=== PATIENT | female | born 1960 | race Caucasian/White ===

== ENCOUNTER 2023-03-10 11:37 | Outpatient (OUT) | payer OTHER, SELFPAY ==
--- NOTE | 2023-03-10 11:39 | XR_ITS ---
[facility] [place] [facility] [id number] Patient Name: ALESSANDRA DUARTE MRN: [id number] date: 1960 Sex: F Assigned Patient Location: [facility] Current Patient Location: [facility] Accession/Order Number: [id number] Exam Date: 03/10/2023 11:48 Report Date: 03/10/2023 12:17 At the request of: SALLY BYNUM Procedure: XR DEXA axial skeleton EXAMINATION: XR DEXA axial skeleton HISTORY: General Well Adult Z00.00 COMPARISON: No relevant comparison available. TECHNIQUE: Dual-energy X-ray absorptiometry (DXA) was performed. FINDINGS: SPINE ANALYSIS: Average bone mineral density is 1.460 g/cm2. T-score (standard deviation relative to young adult mean): 2.2 . FOREARM ANALYSIS: Lowest bone mineral density is within the radius, 0.788 g/cm2. T-score (standard deviation relative to young adult mean): 1.0 . XR/XR DEXA axial skeleton IMPRESSION: World Kash Organization Classification: Normal - Low Fracture Risk Electronically authenticated by: GEORGE STORY Date: 03/10/2023 12:17
== END 2023-03-10 11:38 | disposition home or self-care (01) ==
PROVIDERS: PCP Nurse Practitioner Family; Visit Provider Nurse Practitioner Family
DX: Z00.00 Encounter for general adult medical examination without abnormal findings (principal)
CPT/HCPCS: 77080

== ENCOUNTER 2023-10-27 09:06 | Outpatient (OUT) | payer MEDICARE, BC, SELFPAY ==
--- NOTE | 2023-10-27 09:19 | MM_ITS ---
Patient Name: ALESSANDRA DUARTE MR#: [id number] : 1960 Exam Date: 10/27/2023 Ordering Doctor: SALLY BYNUM CNP RADIOLOGY REPORT PROCEDURE: MM TOMOSYNTHESIS SCREENING BI COMPARISON: MAMMO JUSTIN SCREEN, 08/14/2017. MM TOMOSYNTHESIS SCREENING BI, 11/04/2018. INDICATIONS: screening Calculator Name NCI Breast Cancer Risk Assessment Tool 5 Year Breast Cancer Risk 1.80% Lifetime Breast Cancer Risk 6.90% Personal Breast Cancer No Personal Ovarian Cancer No Treatments None Family Cancers Father with colon cancer at age ~75. LOCATION: [facility] BREAST COMPOSITION: There are scattered areas of fibroglandular density. FINDINGS: DIAGNOSTIC CATEGORY 1--NEGATIVE. NO CHANGE FROM COMPARISON ASSESSMENT. Scattered benign-appearing calcifications are present. Scattered benign-appearing lymph nodes are present. RIGHT BREAST: No significant suspicious finding. LEFT BREAST: No significant suspicious finding. Stable moderate focal asymmetry upper outer quadrant likely representing fibroglandular tissue RECOMMENDATIONS: ROUTINE MAMMOGRAM AND CLINICAL EVALUATION IN 12 MONTHS. PLEASE NOTE: A NORMAL MAMMOGRAM DOES NOT EXCLUDE THE POSSIBILITY OF BREAST CANCER. A CLINICALLY SUSPICIOUS PALPABLE LUMP SHOULD BE BIOPSIED. Dictated by: Misael Morales MD on 11/02/2023 at 14:36 Approved by: Misael Morales MD on 11/02/2023 at 14:38
[2023-10-27 09:52] LABS: Estimated Average Glucose 100 mg/dL; Glycohemoglobin A1C 5.1 % (4.5-6.2)
[2023-10-27 09:59] LABS: Alanine Aminotransferase 46 U/L (14-59); Albumin Globulin Ratio 1.2; Albumin Level 3.7 g/dL (3.4-5.0); Alkaline Phosphatase 51 U/L (46-116); Anion Gap 12.6; Aspartate Amino Transferase 28 U/L (15-37); BUN Creatinine Ratio 21.6; Bilirubin Total 0.8 mg/dL (0.2-1.0); Calcium 9.2 mg/dL (8.5-10.1); Carbon Dioxide 28.8 mmol/L (21.0-32.0); Chloride 107 mmol/L (98-107); Chol HDL Ratio 1.7; Cholesterol 155 mg/dL (<=200); Estimated GFR (African America >60 (>=60); Estimated GFR (Non-African Ame >60 (>=60); Free T3 3.67 pg/mL (2.18-3.98); Globulin 3.2 g/dL; Glucose 91 mg/dL (74-106); HDL Cholesterol 89 mg/dL (40-60); Potassium 4.4 mmol/L (3.5-5.1); Sodium 144 mmol/L (136-145); Total Protein 6.9 g/dL (6.4-8.2); Triglycerides 41 mg/dL (<=150); VLDL CHOLESTEROL 8.2 mg/dL
[2023-10-27 10:38] LABS: Basophils Percent Auto 0.6 % (0.2-2.0); Eosinophils Absolute Auto 0.2 10^3/uL (0.0-0.7); Eosinophils Percent Auto 3.6 % (0.9-7.0); Hematocrit 40.4 % (36.0-48.0); Hemoglobin 12.8 g/dL (12.0-16.0); Immature Granulocytes Abs Auto 0.02 10^3/uL (0.00-0.03); Immature Granulocytes Pct Auto 0.4 % (0.0-0.5); Lymphocytes Absolute Auto 1.6 10^3/uL (1.2-3.8); Lymphocytes Percent Auto 29.7 % (20.5-60.0); Mean Corpuscular HGB Conc 31.7 g/dL (29.9-35.2); Mean Corpuscular Hemoglobin 31.6 pg (26.7-34.0); Mean Corpuscular Volume 99.8 fL (81.0-99.0); Monocytes Absolute Auto 0.5 10^3/uL (0.3-0.8); Monocytes Percent Auto 9.4 % (1.7-12.0); Neutrophils Absolute Auto 2.9 10^3/uL (1.4-6.5); Neutrophils Percent Auto 56.3 % (43.0-75.0); Platelet Count 239 10^3/uL (150-450); Red Blood Count 4.05 10^6/uL (4.20-5.40); White Blood Count 5.2 10^3/uL (4.0-11.0)
[2023-10-28 10:10] LABS: Insulin 9.4 uIU/mL (2.6-24.9)
== END 2023-10-27 09:07 | disposition home or self-care (01) ==
LOC: MAMMO 09:06
PROVIDERS: PCP Nurse Practitioner Family; Visit Provider Nurse Practitioner Family
DX: Z12.31 Encounter for screening mammogram for malignant neoplasm of breast (principal); M19.90 Unspecified osteoarthritis, unspecified site; E78.5 Hyperlipidemia, unspecified; R73.09 Other abnormal glucose; R53.83 Other fatigue; D64.9 Anemia, unspecified; E55.9 Vitamin D deficiency, unspecified; Z80.0 Family history of malignant neoplasm of digestive organs
CPT/HCPCS: 36415; 77063; 77067; 80053; 80061; 82306; 83036; 83525; 83540; 84436; 84443; 84481; 85025

== ENCOUNTER 2024-05-12 09:34 | Outpatient (OUT) | payer MEDICARE, BC, SELFPAY ==
--- NOTE | 2024-05-12 09:45 | NM_ITS ---
[facility] [place] [address] Patient Name: ALESSANDRA DUARTE MRN: [id number] date: 1960 Sex: F [place]igned Patient Location: [place] Current Patient Location: [place] Accession/Order Number: [id number] Exam Date: 05/12/2024 09:45 Report Date: 05/12/2024 13:54 At the request of: SHARLA ALDANA Procedure: NE bone 3 phase EXAMINATION: NE bone 3 phase HISTORY: LEFT HIP PAIN, RULE OUT PROSTHETIC LOOSENING COMPARISON: No relevant comparison available. TECHNIQUE: 25.3 mCi Technetium 99m MDP was injected intravenously followed by acquisition of dynamic flow, immediate blood pool, and delayed static images. FINDINGS: IMAGED AREA: Pelvis FLOW PHASE: Normal. BLOOD POOL PHASE: Normal. DELAYED IMAGES: Normal. OTHER: Bilateral hip photopenia suggesting bilateral hip arthroplasty. No plain film correlation NE/NE bone 3 phase IMPRESSION: No abnormal radionuclide activity to suggest left hip prosthetic loosening Electronically authenticated by: HECTOR PASCAL Date: 05/12/2024 13:54
== END 2024-05-12 09:35 | disposition home or self-care (01) ==
LOC: NM 09:36
PROVIDERS: PCP Nurse Practitioner Family; Visit Provider Orthopaedic Surgery
DX: M25.552 Pain in left hip (principal); Z96.642 Presence of left artificial hip joint
CPT/HCPCS: 78315; A9503

== ENCOUNTER 2024-06-06 12:53 | Outpatient (RCR) | payer MEDICARE, BC, SELFPAY | END 2024-07-12 08:21 | disposition home or self-care (01) | LOC: PT 12:53 | PROVIDERS: PCP Nurse Practitioner Family; Visit Provider Orthopaedic Surgery | DX: M25.552 Pain in left hip (principal); M54.50 Low back pain, unspecified | CPT/HCPCS: 97110; 97112; 97163; 97530 ==

== ENCOUNTER 2024-11-24 09:02 | Outpatient (OUT) | payer MEDICARE, BC, SELFPAY ==
--- OUTSIDE RECORDS SUMMARY | 2024-11-24 09:22 | XMS_ITS | CCD ---
Author Organization [facility] Care Team Providers Care Channeler Insole Name Role Phone LISA FITCH Primary Care UnavailJEAN CARLOS Nelson Attending Unavailable Lisa Fitch Primary Care Provider Lisa Fitch Primary Care Provider LISA FITCH Primary Care Unavailable NICOLE DIAMOND Referring Unavailable DERRELL ALARCON Attending Unavailable LISA FITCH Primary Care Unavailable SELF, SELF Referring Unavailable Tima Rodriguez MD Primary Care Provider Amanda Cleary MD Unavailable Libby WYLIE Regine Unavailable NON STAFF Primary Care Provider Unavailsanta Holliday MD, Tung Arauz Attending Provider [phone] Evin [employer] AGENT-C, Amanda Agudelo Primary Care Provider Diane Barrera DO Attending Provider Tung Holliday II Admitting UnavailTung Dubose II Attending Unavailsanta e NON STAFF Primary Care Unavailable Tung Holliday II Admitting Unavailsanta Holliday II, Tung Arauz Attending UnavailAmanda Calixto Primary Care Unavailable Tung Holliday II Admitting UnavailTung Dubose II Attending UnavailAmanda Calixto Primary Care Unavailable Diane Barrera Admitting Unavailable Diane Barrera Attending Unavailable Amanda Cleary Primary Care Unavailable MISAEL PARISI Attending Unavailable ROLF ALAN Attending Unavailable JR. NICOLE, SHARLA Alfred Attending Unavailtasha RIVERA JR., SHARLA Alfred Referring Unavailtasha RIVERA JR., GEORGE C Attending Flor RIVERA JR., GEORGE C Attending Flor fink Allergies Allergy Classification Reported Allergen(s) Allergy Type Date of Onset Reaction(s) Facility Unclassified (1 source) ALLERGIES NOT ON FILE; Translations: [ALLERGIES NOT ON FILE] Propensity to adverse reactions (disorder) [facility] Repository (20 sources) Codeine; Translations: [Unknown] Drug Allergy 04-23-20 15 GI Intolerance, Dizziness [facility] Repository (16 sources) Amoxicillin / Clavulanate Drug Allergy 07-13-19 14 Hives, Rash, Anaphylaxis, Itching [facility] (3 sources) Acetaminophen; Translations: [acetaminophen] Drug Allergy 06-16-20 24 Vomiting [facility] (2 sources) Amoxicillin; Translations: [amoxicillin] Drug Allergy 07-26-19 [facility] (2 sources) Clavulanate; Translations: [clavulanic acid] Drug Allergy 07-26-19 25 [facility] (3 sources) oxyCODONE; Translations: [oxycodone] Drug Allergy 06-16-20 24 [facility] (5 sources) buPROPion Drug Allergy 05-11-20 14 [facility] (5 sources) methylPREDNISolone Drug Allergy 02-28-20 22 Nausea Only [facility] (5 sources) Morphine And Codeine Drug Intolerance 11-29-19 10 GI intolerance, Nausea And Vomiting, Nausea Only, Swelling [facility] Medications Current Medications Medication Drug Class(es) Dates Sig (Normalized) Sig (Original) b complex vitamins capsule (2 sources) take 1 capsule by mouth once daily in the morning b complex vitamins capsule Take 1 capsule by mouth every morning . 0 Active benzonatate 200 mg oral capsule (1 source) Non-narcotic Antitussive Start: 06-07-2019 End: 06-06-2020 take 1 capsule by mouth three times daily as needed for cough benzonatate (TESSALON) 200 MG capsule Indications: Viral URI with cough , Acute non-recurrent frontal sinusitis Take 1 (one) capsule (200 mg total) by mouth 3 (three) times a day as needed for cough . 60 capsule 1 06/07/2019 06/06/2020 Active biotin 10 mg oral capsule (3 sources) Start: 12-01-2018 Biotin 10,000 mcg Capsule Active 92967 MCG PO As Directed May 21st, 2019 11:00pm CA CARB & GLUC/MAG OX & GLUC (CALCIUM MAGNESIUM ORAL) (2 sources) take 1 tablet by mouth four times daily CA CARB & GLUC/MAG OX & GLUC (CALCIUM MAGNESIUM ORAL) Take by mouth 4 (four) times a day *Takes a calcium, magnesium, Vit D3 tab. 0 Active calcium carbonate 400 mg / cholecalciferol 133 unt / magnesium oxide 167 mg oral tablet (1 source) Vitamin D Start: 12-01-2018 take 1 tablet by mouth once Calcium Carb-Mag Oxide-Vit D3 (Calcium Magnesium Plus D) 400-167-133 mg-mg-unit Tablet Active 1 TAB PO As Directed November 30, 2018 11:00pm chlorhexidine gluconate 40 mg/ml medicated liquid soap (3 sources) Start: 09-07-2024 Chlorhexidine Gluconate (Hibiclens) 4 % solution Indications: Prophylactic measure Use once daily in shower, wash from the neck down only, 2 weeks prior to procedure. 30 day supply 473 mL 09/07/2024 Active cholecalciferol 0.01 mg oral capsule (3 sources) Vitamin D Start: 12-01-2018 Cholecalciferol (Vitamin D3) (Vitamin D3) 400 unit Capsule Active 50 MCG PO Four times daily November 30, 2018 11:00pm cholecalciferol, vitamin D3, (VITAMIN D3) 2,000 unit cap Take by mouth 4 (four) times a day. 0 Active cinnamon bark 500 mg oral capsule (3 sources) Start: 12-01-2018 take 1 capsule by mouth three times daily Cinnamon Bark (Cinnamon) 500 mg Capsule Active 1000 MG PO Three times daily November 30, 2018 11:00pm Complete B (1 source) Start: 12-01-2018 take 1 tablet by mouth once daily Complete B Active 1 TAB PO Daily November 30, 2018 11:00pm doxycycline hyclate 100 mg oral tablet (1 source) Tetracycline-class Drug Start: 06-07-2019 End: 06-17-2019 take 1 tablet by mouth twice daily doxycycline hyclate (VIBRA-TABS) 100 MG tablet Indications: Acute non-recurrent frontal sinusitis Take 1 (one) tablet (100 mg total) by mouth 2 (two) times a day for 10 days . 20 tablet 0 06/07/2019 06/17/2019 Active 12 hr guaiFENesin 1200 mg / pseudoephedrine hydrochloride 120 mg extended release oral tablet (2 sources) alpha-Adrenergic Agonist Start: 06-07-2019 take 120-1200 mg by mouth once as needed pseudoephedrine-g uaiFENesin (Mucinex D Maximum Strength) 120-1,200 mg Tb12 Indications: Viral URI with cough , Acute non-recurrent frontal sinusitis Take 1 (one) tablet by mouth 2 (two) times a day as needed . 24 each 0 06/07/2019 Active Zpjowsvv-Nhs-Rwatp Acid-Vit K (Multi For Her 50 Plus) 400-80 mcg Capsule (1 source) Start: 12-01-2018 take 50-400 capsules by mouth once daily Mhxmfyrg-Aiz-Kvml c Acid-Vit K (Multi For Her 50 Plus) 400-80 mcg Capsule Active 1 TAB PO Daily November 30, 2018 11:00pm multivitamin (multivitamin) per tablet (2 sources) take 1 tablet by mouth once daily multivitamin (multivitamin) per tablet Take 1 tablet by mouth daily. 0 Active naproxen sodium 220 mg oral capsule (14 sources) Nonsteroidal Anti-inflammatory Drug Naproxen Sodium (Aleve) 220 MG capsule Take by mouth Active Hanahan 2-Ufr-Fvg-Fish Oil (Hanahan-3) 350 mg-235 mg- 90 mg-597 mg Capsule,Delayed Release(Dr/Ec) (1 source) Start: 12-01-2018 take 1 capsule by mouth five times daily Hanahan 6-Rch-Pgh-Fish Oil (Hanahan-3) 350 mg-235 mg- 90 mg-597 mg Capsule,Delayed Release(Dr/Ec) Active 1350 MG PO 5 times per day November 30, 2018 11:00pm OMEGA-3S/DHA/EPA/FISH OIL (OMEGA 3 ORAL) (2 sources) OMEGA-3S/DHA/EPA / FISH OIL (OMEGA 3 ORAL) Take 1,350 mg by mouth 5 (five) times a day . 0 Active polyethylene glycol 3350 53094 mg powder for oral solution (1 source) Osmotic Laxative Start: 01-21-2019 Polyethylene Glycol 3350 (Miralax) 17 gram/dose Powder Active 17 GM PO Daily January 20, 2019 11:00pm predniSONE 20 mg oral tablet (2 sources) Start: 06-07-2019 predniSONE (DELTASONE) 20 MG tablet Indications: Viral URI with cough , Acute non-recurrent frontal sinusitis 3 tabs QD x3d, then 2 tabs QD x3d, then 1 tabs QD x3d, then 0.5 tabs QD x3d . 20 tablet 0 06/07/2019 Active Tumeric (1 source) Start: 12-01-2018 take 400 mg by mouth three times daily Tumeric Active 400 MG PO Three times daily November 30, 2018 11:00pm Vitamin K 1 (2 sources) Warfarin Reversal Agent, Vitamin K take 50 ug by mouth twice daily PHYTONADIONE (VITAMIN K ORAL) Take 50 mcg by mouth 2 (two) times a day . 0 Active vitamin k2 0.04 mg oral tablet (1 source) Start: 12-01-2018 Vitamin K2 40 mcg Tablet Active 50 MCG PO Daily November 30, 2018 11:00pm Completed/Discontinued Medications Medication Drug Class(es) Dates Sig (Normalized) Sig (Original) acetaminophen 500 mg oral tablet (1 source) Start: 12-25-2018 End: 01-21-2019 Acetaminophen 500 mg Tablet Discontinued 650 MG PO Q4H 60 December 24, 2018 11:00pm January 21, 2019 10:40am aspirin 325 mg delayed release oral tablet (1 source) Platelet Aggregation Inhibitor, Nonsteroidal Anti-inflammatory Drug Start: 12-25-2018 End: 08-03-2019 take 1 tablet by mouth once daily Aspirin 325 mg Tablet,Delayed Release (Dr/Ec) Discontinued 325 MG PO Daily 30 December 24, 2018 11:00pm August 03, 2019 1:04pm docusate sodium 100 mg oral capsule (1 source) Start: 12-25-2018 End: 01-21-2019 take 1 capsule by mouth twice daily Docusate Sodium 100 mg Capsule Discontinued 100 MG PO Twice daily 30 December 24, 2018 11:00pm January 21, 2019 10:41am ferrous sulfate 324 mg delayed release oral tablet (1 source) Start: 12-25-2018 End: 01-21-2019 take 1 tablet by mouth twice daily at mealtime Ferrous Sulfate 324 mg (65 mg iron) Tablet,Delayed Release (Dr/Ec) Discontinued 324 MG PO Twice daily with meals 0 December 24, 2018 11:00pm January 21, 2019 10:41am Ginseng (1 source) Start: 08-03-2019 End: 06-16-2024 take 1 capsule by mouth twice daily Ginseng 250 mg Capsule Discontinued 250 MG PO Twice daily August 03, 2019 12:00am June 16, 2024 2:09pm ketorolac tromethamine 10 mg oral tablet (1 source) Nonsteroidal Anti-inflammatory Drug, Cyclooxygenase Inhibitor Start: 12-25-2018 End: 01-21-2019 take 1 tablet by mouth every six hours as needed for pain Ketorolac 10 mg tablet Discontinued 10 MG PO Q6H as needed for Pain 10 3 December 25, 2018 9:36am January 21, 2019 10:41am magnesium hydroxide 80 mg/ml oral suspension (1 source) Start: 12-25-2018 End: 01-21-2019 take 1 mL by mouth three times daily as needed for constipation Magnesium Hydroxide (Milk Of Magnesia) 400 mg/5 mL Suspension Discontinued 30 ML PO Three times daily as needed for Constipation 0 December 24, 2018 11:00pm January 21, 2019 10:41am traMADol hydrochloride 50 mg oral tablet (1 source) Opioid Agonist Start: 12-25-2018 End: 01-21-2019 take 1-2 mg by mouth every four to six hours as needed for pain Tramadol 50 mg tablet Discontinued 1 - 2 MG PO EVERY 4-6 HOURS as needed for Pain 45 5 December 25, 2018 9:34am January 21, 2019 10:41am Problems Active Problems Problem Classification Problem Date Documented Date Episodic/Chronic Neoplasms of unspecified nature or uncertain behavior (2 sources) Neoplastic disease; Translations: [Neoplasm of unspecified behavior of bone, soft tissue, and skin] 09-01-2024 Episodic Other connective tissue disease (5 sources) History of repair of hip joint; Translations: [Presence of left artificial hip joint] 05-04-2024 Chronic Comment on above: Problem List clean-u p per request of Phys. EHR Cmte Other connective tissue disease (1 source) History of total hip arthroplasty; Translations: [Presence of left artificial hip joint] 06-16-2024 Chronic Other connective tissue disease (3 sources) Presence of left artificial hip joint; Translations: [Hip joint replacement] Onset: 06-20-2024 06-16-2024 Chronic Other connective tissue disease (1 source) Trochanteric bursitis; Translations: [Trochanteric bursitis, left hip] 06-23-2024 Episodic Other connective tissue disease (1 source) Trochanteric bursitis, left hip; Translations: [Enthesopathy of hip region] 06-23-2024 Episodic Other injuries and conditions due to external causes (1 source) Swallowed foreign body; Translations: [Foreign body of alimentary tract, part unspecified, initial encounter] 06-24-2023 Episodic Comment on above: Problem List clean-u p per request of Phys. EHR Cmte Other non-epithelial cancer of skin (2 sources) Squamous cell carcinoma of skin of lower extremity; Translations: [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, including hip] 10-12-2024 Episodic Other non-traumatic joint disorders (8 sources) Hip pain; Translations: [Pain in left hip] 05-04-2024 Episodic Other non-traumatic joint disorders (1 source) Pain in left hip; Translations: [Pain in left hip] Onset: 06-16-2024 Episodic Other nutritional; endocrine; and metabolic disorders (2 sources) Hypervitaminosis B6; Translations: [Hypervitaminosis B6] Onset: 08-31-2015 08-31-2015 Chronic Other screening for suspected conditions (not mental disorders or infectious disease) (1 source) Encounter for screening for malignant neoplasm of colon; Translations: [Encounter for screening for malignant neoplasm of colon] Onset: 08-09-2024 Episodic Other skin disorders (2 sources) Lentiginosis; Translations: [Other melanin hyperpigmentation] 10-12-2024 Episodic Other skin disorders (2 sources) Eruption; Translations: [Rash and other nonspecific skin eruption] 10-12-2024 Episodic Residual codes; unclassified (1 source) Family history of cancer of colon; Translations: [Family history of malignant neoplasm of digestive organs] 06-24-2023 Episodic Comment on above: Problem List clean-u p per request of Phys. EHR Cmte Spondylosis; intervertebral disc disorders; other back problems (2 sources) Pain in lumbar spine ; Translations: [Pain of lumbar spine] 07-20-2024 Episodic Spondylosis; intervertebral disc disorders; other back problems (2 sources) Bilateral sciatica; Translations: [Bilateral sciatica] Onset: 07-25-2015 07-25-2015 Sprains and strains (6 sources) Low back strain; Translations: [Strain of muscle, fascia and tendon of lower back, initial encounter] 05-25-2024 Episodic Unclassified (2 sources) History of bypass of stomach; Translations: [Gastric bypass status for obesity] Onset: 08-31-2015 08-31-2015 Unclassified (4 sources) History of repair of hip joint 05-04-2024 Past or Other Problems Problem Classification Problem Date Documented Da te Episodic/Chronic Other upper respiratory infections (2 sources) Viral upper respiratory tract infection; Translations: [Acute frontal sinusitis] Episodic Residual codes; unclassified (2 sources) Edema of lower extremity; Translations: [Lower extremity edema] Onset: 08-31-2015 08-31-2015 Episodic Results Test Name Value Interpretation Reference Range Facility No Panel Informationon 10-12 Complexity: simple Destruction method: electrodesiccation and curettage Informed consent: discussed and consent obtained Informed consent comment: The risks of the procedure were discussed, including, but not limited to risks of scarring, darker or peoplesoft analyst pigmentary changes, recurrence, infection, and incomplete removal Timeout: patient name, date of , surgical site, and procedure verified Timeout comment: Patient and provider identified site. Site was marked. Photo was taken and shown to patient, patient verified this is the correct site. Procedure prep: Patient was prepped and draped in usual sterile fashion Prep type: Chlorhexidine Anesthesia: the lesion was anesthetized in a standard fashion Anesthetic: 1% lidocaine w/ epinephrine 1-100,000 buffered w/ 8.4% NaHCO3 Curettage performed in three different directions: Yes Electrodesiccation performed over the curetted area: Yes Curettage cycles: 3 Lesion length (cm): 0.4 Lesion width (cm): 0.3 Margin per side (cm): 0 Final wound size (cm): 0.4 Hemostasis achieved with: electrodesiccation Outcome: patient tolerated procedure well with no complications Post-procedure details: wound care instructions given Post-procedure details comment: Post-procedure instructions were given verbally and in writing. The office will be contacted if the lesion fails to resolve despite treatment, or if a side effect develops such as abnormal crusting, scabbing, reddness, discharge, or tenderness. Additional details: Amount of lidocaine used: 3.0 ml Previous accession [facility]: [id number] [facility] No Panel Informationon 09-01 Type of biopsy: tangential Informed consent: discussed and consent obtained Informed consent comment: The risks and benefits of the biopsy were discussed. Risks include but are not limited to bleeding, infection, scarring, pain, and nerve damage. An opportunity to ask questions prior to the procedure was permitted and all questions were answered. Patient was prepped and draped in usual sterile fashion: area cleansed with alcohol. Anesthesia: the lesion was anesthetized in a standard fashion Anesthetic: 1% lidocaine w/ epinephrine 1-100,000 buffered w/ 8.4% NaHCO3 Instrument used: DermaBlade Hemostasis achieved with: electrodesiccation Outcome: patient tolerated procedure well Outcome comment: The specimen was placed in a prelabeled formalin container to be sent for pathology Post-procedure details: sterile dressing applied and wound care instructions given Post-procedure details comment: Emphasized need to contact clinic for any signs of infection, uncontrollable bleeding, or complications. Dressing type: bandage Additional details: Photo taken Amount of lidocaine used: 1.0 cc Synup Agensys mary ann Krishna 08-09-2024 L - -------- Specimen: [id number] Received: 08/09/24 Status: ROSE Ioana Num: [id number] Spec Type: Surgical Subm Dr: Diane Barrera DO Tissues: A Colon Biopsy (DESCENDING POLYP) B Colon Biopsy (TRANSVERSE POLYP) C Colon Biopsy (RECTAL POLYP) Procedures: HE/Solis, Gross/Micro L4/3 -------- Age/ Patient Sex Location Account Attending Physician -------- Ary Shepherd 63/F [id number] Diane Barrera, -------- SPEC NUM: [id number] RECD: 08/09/24 STATUS: ROSE TRIPLETT NUM: [id number] ADAMARIS: 08/09/[address] [facility] [address]: Diane Barrera DO ENTERED: 08/09/[address]: KITA TYPE: Surgical DEPT: S ENTERED BY: [id number] RECV BY: [id number] ORDERED: HE/8, Gross/Micro L4/3 ORDERED: HE/8, Gross/Micro L4/3 Pathological Diagnosis A. Colon, descending, polypectomy: - Tubular adenoma. B. Colon, transverse, polypectomy: - Fragments of sessile serrated adenoma. C. Rectum, polypectomy: - Tubular adenoma. Clinical Information Family history colon cancer, screen Gross Description Part A is received in formalin labeled with the patients name, date of , and descending polyps are two tinoco-torres, focally erythematous, friable, 0.4 cm each in greatest dimension polypoid fragments. The specimen is entirely submitted in a single cassette. (1, ns, [id number] A) Part B is received in formalin labeled with the patients name, date of , and transverse polyp are four tinoco-torres, focally erythematous, friable, 0.3 to 1.2 cm in greatest dimension polypoid fragments. The largest specimen is inked black at the apparent -------- Specimen: [id number] Received: 08/09/24 Status: ROSE Triplett Num: [id number] Spec Type: Surgical Subm Dr: Diane Barrera DO Tissues: A Colon Biopsy (DESCENDING POLYP) B Colon Biopsy (TRANSVERSE POLYP) C Colon Biopsy (RECTAL POLYP) Procedures: HE/Solis, Gross/Micro L4/3 -------- Patient: CoraKortneyAry L [id number] (Continued) -------- Specimen: [id number] Received: 08/09/24 (Continued) Gross Description (Continued) Signed (signature on file) Kurt Sierra MD 08/10/241008 -------- Specimen: [id number] Received: 08/09/24 Status: ROSE Triplett Num: [id number] Spec Type: Surgical Subm Dr: Diane Barrera DO Tissues: A Colon Biopsy (DESCENDING POLYP) B Colon Biopsy (TRANSVERSE POLYP) C Colon Biopsy (RECTAL POLYP) Procedures: HE/8, Gross/Micro L4/3 -------- Patient: Ary Shepherd [id number] (Continued) -------- Specimen: [id number] Received: 08/09/24-1017 (Continued) Gross Description (Continued) point of attachment, serially section, and entirely submitted in B1 with the remainder of the specimen submitted in B2. (2, ns, [id number] B) Part C is received in formalin labeled with the patients name, date of , and rectal polyp are two tinoco-torres, focally erythematous, friable, 0.3 cm each in greatest dimension polypoid fragments. The specimen is entirely submitted in a single cassette. (1, ns, [id number] 542 C) Microscopic Description A-C: Microscopic examination is performed. CPT Codes 25359 x3 -------- -------- Specimen: [id number] Received: 08/09/24-1017 Status: ROSE Triplett Num: [id number] Spec Type: Surgical Subm Dr: Diane Barrera DO Tissues: A Colon Biopsy (DESCENDING POLYP) B Colon Biopsy (TRANSVERSE POLYP) C Colon Biopsy (RECTAL POLYP) Procedures: HE/8, Gross/Micro L4/3 -------- Patient: Ary Shepherd Eryn [id number] (Continued) -------- Signed (signature on file) Kurt Sierra MD 08/10/24 1009 Normal [facility] Basophils Auto (Bld) [#/Vol] Ordered By: Tung Holliday on 06-20-2024 Basophils (Bld) [#/Vol] Automated basoph il count 0.0-0.2 [facility] Basophils/100 WBC Auto (Bld) Ordered By: Tung Holliday on 06-20-2024 Basophils/100 WBC (Bld) Automated basophil % . [facility] C reactive protein [Mass/vol ume] in Serum or PlasmaOrdered By: Tung Holliday on 06-20-2024 CRP [Mass/Vol] C reactive protein [Mass/volume] in Serum or Plasma 0.0-0.5 [facility] C-Reactive Proteinon 024 CRP [Mass/Vol] mg/L Normal 0.0-0.5 [facility] Comment on above: Result Comment: PERF ORMED BY: [place] [address] PATHOLOGIST KIT PLANNER JOCELYN CASAS M.D. Performed By: #### D DIMER, ESR, CBC, CRP #### [address] Complete Blood Count Auto Di ffon 06-20-2024 Basophils (Bld) [#/Vol] 0.0 10*3/uL Normal 0.0-0.2 [facility] Comment on above: Performed By: #### D DIMER, ESR, CBC, CRP #### [address] Basophils/100 WBC (Bld) 0.6 % Normal . T waqar [facility] Comment on above: Performed By: #### D DIMER, ESR, CBC, CRP #### [address] Eosinophils (Bld) [#/Vol] 0.1 10*3/uL Normal 0.0-0.45 [facility] Comment on above: Performed By: #### D DIMER, ESR, CBC, CRP #### [address] Eosinophils/100 WBC (Bld) 2.5 % Normal . [facility] Comment on above: Performed By: #### D DIMER, ESR, CBC, CRP #### [address] Erythrocyte distribution width (RBC) [Ratio] 13.4 % Normal 11.9-15.3 [facility] Comment on above: Performed By: #### D DIMER, ESR, CBC, CRP #### [place] [id number] [place] Hematocrit (Bld) [Volume fraction] 39.5 % Normal 34.0-46.4 [facility] Comment on above: Performed By: #### D DIMER, ESR, CBC, CRP #### [address] Hemoglobin (Bld) [Mass/Vol] 13.5 g/dL Normal 11.8-15.4 [facility] Comment on above: Performed By: #### D DIMER, ESR, CBC, CRP #### [address] Lymphocytes (Bld) [#/Vol] 1.3 10*3/uL Normal 1.00-4.8 [facility] Comment on above: Performed By: #### D DIMER, ESR, CBC, CRP #### [address] Lymphocytes/100 WBC (Bld) 23.2 % Normal . [facility] Comment on above: Performed By: #### D DIMER, ESR, CBC, CRP #### [address] MCH (RBC) [Entitic mass] 32.9 pg Normal 24.7-34.3 [facility] Comment on above: Performed By: #### D DIMER, ESR, CBC, CRP #### [address] MCV (RBC) [Entitic vol] 95.9 fL Normal 80-100 [facility] Comment on above: Performed By: #### D DIMER, ESR, CBC, CRP #### [address] Mean Corpuscular HGB Conc 34.3 g/dL Normal 32.0-35.0 [facility] Comment on above: Performed By: #### D DIMER, ESR, CBC, CRP #### [address] Monocytes (Bld) [#/Vol] 0.5 10*3/uL Normal 0.0-0.8 [facility] Comment on above: Performed By: #### D DIMER, ESR, CBC, CRP #### [facility] [address] [place] [address] [place] Monocytes/100 WBC (Bld) 8.4 % Normal . [facility] Comment on above: Performed By: #### D DIMER, ESR, CBC, CRP #### [facility] [address] Neutrophils (Bld) [#/Vol] 3.7 10*3/uL Normal 1.8-7.7 [facility] Comment on above: Performed By: #### D DIMER, ESR, CBC, CRP #### [facility] [address] Neutrophils/100 WBC (Bld) 65.3 % Normal . [facility] Comment on above: Performed By: #### D DIMER, ESR, CBC, CRP #### [address] NRBC% 0.1 /100{WBC} Normal 0-0.5 [facility] [place] [facility] Comment on above: Performed By: #### D DIMER, ESR, CBC, CRP #### [address] Platelet mean volume (Bld) [Entitic vol] 7.7 fL Normal 6.3-10.7 [facility] Comment on above: Performed By: #### D DIMER, ESR, CBC, CRP #### [place] [address] [place] Platelets (Bld) [#/Vol] 260 10*3/uL Normal 150-450 [facility] Comment on above: Performed By: #### D DIMER, ESR, CBC, CRP #### [facility] [address] [place] [address] [place] RBC (Bld) [#/Vol] 4.11 10*6/uL Normal 3.60-5.00 [facility] Comment on above: Performed By: #### D DIMER, ESR, CBC, CRP #### [facility] [address] [place] [address] [place] WBC (Bld) [#/Vol] 5.6 10*3/uL Normal 3.8-11.6 [facility] Comment on above: Performed By: #### D DIMER, ESR, CBC, CRP #### [place] [id number] [facility] D-Dimer High Sensitivityon 1 08-21-2023 D-Dimer High Sensitivity <200 Normal 0-243 [facility] Comment on above: Result Comment: The reference range for D-dimer is <243 ng/mL D-dimer units. D-dimer results must be used in conjunction with a clinical pretest probability (PTP) assessment model for deep vein thrombosis (DVT) and pulmonary embolism (PE). Results <230 ng/mL d-dimer units can be used as a negative predictor in patients with low or moderate probability for DVT/PE. Results above the exclusion threshold of 230 ng/ml D-dimer units for DVT/PE may indicate the need for further diagnostic testing. D-Dimer can be increased in hospitalized patients due to co-morbid conditions. A hematocrit value greater than 55% may lead to inaccurate results in coagulation testing. Patients having hematocrit values >55% require a special collection tube for coagulation studies. Please contact the laboratory at [phone] for redraw instructions. PERFORMED BY: [address] [place] [address] PATHOLOGIST KIT PLANNER JOCELYN CASAS M.D. Performed By: #### D DIMER, ESR, CBC, CRP #### [place] [id number] [place] Eosinophils Auto (Bld) [#/Vo l]Ordered By: Tung Holliday on 06-20-2024 Eosinophils (Bld) [#/Vol] Automated eosinophil count 0.0-0.45 [facility] Eosinophils/100 WBC Auto (Bl d)Ordered By: Tung Holliday on 06-20-2024 Eosinophils/100 WBC (Bld) Automated eosinophil % . [facility] Erythrocyte Sedimentation Ra nikita 06-20-2024 ESR (Bld) [Velocity] 8 mm/h Normal 0-29 [facility] Comment on above: Result Comment: PERF ORMED BY: [place] [id number] PATHOLOGIST KIT PLANNER JOCELYN CASAS M.D. Performed By: #### D DIMER, ESR, CBC, CRP #### [address] Erythrocyte distribution wid th Auto (RBC) [Ratio]Ordered By: Tung Holliday on 06-20-2024 Erythrocyte distribution width (RBC) [Ratio] Erythrocyte distribution width [Ratio] by Automated count 11.9-15.3 [facility] Erythrocyte sedimentation ra te by Photometric methodOrdered By: Tung Holliday on 06-20-2024 ESR Photometric method (Bld) [Velocity] Erythrocyte sedimentation rate by Photometric method 0-29 [facility] Fibrin D-dimer [Presence] in Platelet poor plasma by Latex agglutinationOrdered By: Tung Holliday on 06-20-2024 Fibrin D-dimer LA Ql (PPP) Fibrin D-dimer [Presence] in Platelet poor plasma by Latex agglutination 0-243 [facility] Comment on above: The reference range for D-dimer is <243 ng/mL D-dimer units.D-dimer results must be used in conjunction with a clinicalpretest probability (PTP) assessment model for deep veinthrombosis (DVT) and pulmonary embolism (PE). Results <230ng/mL d-dimer units can be used as a negative predictor inpatients with low or moderate probability for DVT/PE.Results above the exclusion threshold of 230 ng/ml D-dimerunits for DVT/PE may indicate the need for furtherdiagnostic testing.D-Dimer can be increased in hospitalized patients due toco-morbid conditions.A hematocrit value greater than 55% may lead to inaccurate results in coagulation testing. Patients having hematocrit values >55% require a special collection tube for coagulation studies. Please contact the laboratory at [phone] for redraw instructions. Hematocrit Auto (Bld) [Volum e fraction]Ordered By: Tung Holliday on 06-20-2024 Hematocrit (Bld) [Volume fraction] Hematocrit [Volume Fraction] of Blood by Automated count 34.0-46.4 [facility] Hemoglobin [Mass/volume] in BloodOrdered By: Tung Holliday on 06-20-2024 Hemoglobin (Bld) [Mass/Vol] Hemoglobin [Mass/volume] in Blood 11.8-15.4 [facility] Leukocytes [#/volume] correc shelby for nucleated erythrocytes in Blood by Automated counOrdered By: Tung Holliday on 06-20-2024 WBC corrected for nucl RBC Auto (Bld) [#/Vol] Leukocytes [#/volume] corrected for nucleated erythrocytes in Blood by Automated coun 3.8-11.6 [facility] Lymphocytes Auto (Bld) [#/Vo l]Ordered By: Tung Holliday on 06-20-2024 Lymphocytes (Bld) [#/Vol] Lymphocytes [#/volume] in Blood by Automated count 1.00-4.8 [facility] Lymphocytes/100 WBC Auto (Bl d)Ordered By: Tung Holliday on 06-20-2024 Lymphocytes/100 WBC (Bld) Lymphocytes/100 leukocytes in Blood by Automated count . [facility] MCH Auto (RBC) [Entitic mass ]Ordered By: Tung Holliday on 06-20-2024 MCH (RBC) [Entitic mass] MCH [Entitic mass] by Automated count 24.7-34.3 [facility] MCHC Auto (RBC) [Mass/Vol]Or dered By: Tung Holliday on 06-20-2024 MCHC (RBC) [Mass/Vol] MCHC [Mass/volume] by Automated count 32.0-35.0 [facility] MCV Auto (RBC) [Entitic vol] Ordered By: Tung Holliday on 06-20-2024 MCV (RBC) [Entitic vol] MCV [Entitic vol ume] by Automated count 80-100 [facility] Monocytes Auto (Bld) [#/Vol] Ordered By: Tung Holliday on 06-20-2024 Monocytes (Bld) [#/Vol] Automated blood monocyte count 0.0-0.8 [facility] Monocytes/100 WBC Auto (Bld) Ordered By: Tung Holliday on 06-20-2024 Monocytes/100 WBC (Bld) Automated monocyte % . [facility] Neutrophils Auto (Bld) [#/Vo l]Ordered By: Tung Holliday on 06-20-2024 Neutrophils (Bld) [#/Vol] Neutrophils [#/volume] in Blood by Automated count 1.8-7.7 [facility] Neutrophils/100 WBC Auto (Bl d)Ordered By: Tung Holliday on 06-20-2024 Neutrophils/100 WBC (Bld) Automated neutrophil % . [facility] Nucleated erythrocytes [Pres ence] in Blood by Automated countOrdered By: Tung Holliday on 06-20-2024 Nucleated RBC Auto Ql (Bld) Nucleated erythrocytes [Presence] in Blood by Automated count 0-0.5 [facility] Platelet mean volume Auto (B ld) [Entitic vol]Ordered By: Tung Holliday on 06-20-2024 Platelet mean volume (Bld) [Entitic vol] Platelet mean volume [Entitic volume] in Blood by Automated count 6.3-10.7 [facility] Platelets Auto (Bld) [#/Vol] Ordered By: Tung Holliday on 06-20-2024 Platelets (Bld) [#/Vol] Platelets [#/vol ume] in Blood by Automated count 150-450 [facility] RBC Auto (Bld) [#/Vol]Ordere d By: Tung Holliday on 06-20-2024 RBC (Bld) [#/Vol] Erythrocytes [#/volume] in Blood by Automated count 3.60-5.00 [facility] WBC Auto (Bld) [#/Vol]Ordere d By: Tung Holliday on 06-20-2024 WBC (Bld) [#/Vol] Leukocytes [#/volume ] in Blood by Automated count 3.8-11.6 [facility] XR hip LT min 2V(w/wo pelvis )*on 06-16-2024 XR hip LT min 2V(w/wo pelvis)* [facility] [address] [place] [address] XRay Report Signed Patient: Ary Shepherd MR#: [id number] : 1960 Acct:[id number] Age/Sex: 63 / F ADM Date: 06/16/24 Loc: [facility] Room: Type: [facility] Attending Dr: Tung Holliday II, MD Copies to: Tung Holliday MD Ordering Provider: Tung Holliday MD Date of Service: 06/16/24 XR/XR hip LT min 2V(w/wo pelvis)*: M25.552 - Pain in left hip XR hip LT min 2V(w/wo pelvis)* 06/16/2024 1:00 PM SIGNS AND SYMPTOMS: Left hip pain and weakness PROTOCOL: Frontal radiograph the pelvis with crosstable lateral of the left hip COMPARISON: 12/26/2018 FINDINGS: There is total hip arthroplasty hardware bilaterally without hardware complication or malalignment. Degenerative changes are noted in the lumbar spine. Mild degenerative changes are noted in the sacroiliac joints. XR/XR hip LT min 2V(w/wo pelvis)* IMPRESSION: Uncomplicated total hip arthroplasty hardware bilaterally. Impression dictated by: John Dillard M.D.06/16/2024 5:22 PM Dictation Location: [place] [address] Transcribed By: [facility] 06/16/24 172 Dictated By: John Dillard II, MD 06/16/24 172 Signed By: 06/16/24 172 Normal [facility] XR Hip - left 3 Viewson 04-13 Imaging Result: AP and lateral of left hip showed acceptable position and alignment of left total hip arthroplasty. There was no evidence of loosening of the acetabular cup or femoral stem. Femoral head was well centered in the acetabular liner without evidence of asymmetric or accelerated wear. There was no gross evidence of fracture and/or dislocation. Impression: Unremarkable left total hip arthroplasty. [facility] Study observation (narrative) [facility] CBC with differentialon 09-11 Basophils (Bld) [#/Vol] 0.0 K CUMM Normal 0.0-0.2 [facility] Comment on above: Order Comment: Items in this order include: Comprehensive Metabolic Panel, Lipid Panel, Free T4, TSH, CBC with differential, , , Testing Performed By: [facility] [address] [place] [address] Dr. Anderson Reid, Historical Site Guide Performed By: #### C 8, C400, C215, C408, C47 #### [facility]. [address] [place] [address] [address] [place] [address] Basophils/100 WBC (Bld) 0.4 % Normal 0.0-3.0 [facility] Comment on above: Order Comment: Items in this order include: Comprehensive Metabolic Panel, Lipid Panel, Free T4, TSH, CBC with differential, , , Testing Performed By: [facility] [address] [place] [address] Dr. Anderson Reid, Historical Site Guide Performed By: #### C 8, C400, C215, C408, C47 #### [facility]. [address] [place] [address] [address] [place] [address] Eosinophils (Bld) [#/Vol] 0.1 K CUMM Normal 0.0-0.4 [facility] Comment on above: Order Comment: Items in this order include: Comprehensive Metabolic Panel, Lipid Panel, Free T4, TSH, CBC with differential, , , Testing Performed By: [facility] [address] [place] [address] Dr. Anderson Reid, Historical Site Guide Performed By: #### C 8, C400, C215, C408, C47 #### [facility]. [address] [place] [address] [place] [address] Eosinophils/100 WBC (Bld) 3.1 % Normal 0.0-7.0 [facility] Comment on above: Order Comment: Items in this order include: Comprehensive Metabolic Panel, Lipid Panel, Free T4, TSH, CBC with differential, , , Testing Performed By: [facility] [address] [place] [address] Dr. Anderson Reid, Historical Site Guide Performed By: #### C 8, C400, C215, C408, C47 #### [facility]. [address] [place] [address] [address] [place] [address] Erythrocyte distribution width (RBC) [Ratio] 13.7 % Normal 11.5-15.5 [facility] Comment on above: Order Comment: Items in this order include: Comprehensive Metabolic Panel, Lipid Panel, Free T4, TSH, CBC with differential, , , Testing Performed By: [facility] [address] [place] [address] Dr. Anderson Reid, Historical Site Guide Performed By: #### C 8, C400, C215, C408, C47 #### [facility] [address] [place] [address] [address] [place] [address] Hematocrit (Bld) [Volume fraction] 39.5 % Normal 37.0-47.0 [facility] Comment on above: Order Comment: Items in this order include: Comprehensive Metabolic Panel, Lipid Panel, Free T4, TSH, CBC with differential, , , Testing Performed By: [facility] [address] [place] [address] Dr. Anderson Reid, Historical Site Guide Performed By: #### C 8, C400, C215, C408, C47 #### [facility], [facility]. [address] [place] [address] [address] [place] [address] Hemoglobin (Bld) [Mass/Vol] 12.8 g/dL Normal 11.5-15.5 [facility] Comment on above: Order Comment: Items in this order include: Comprehensive Metabolic Panel, Lipid Panel, Free T4, TSH, CBC with differential, , , Testing Performed By: [facility] [address] [place] [address] Dr. Anderson Reid, Historical Site Guide Performed By: #### C 8, C400, C215, C408, C47 #### [facility]. [address] [place] [address] [address] [place] [address] ImmGrn # 0.0 K CUMM Normal 0.0-0.3 [facility] Comment on above: Order Comment: Items in this order include: Comprehensive Metabolic Panel, Lipid Panel, Free T4, TSH, CBC with differential, , , Testing Performed By: [facility] [address] [place] [address] Dr. Anderson Reid, Historical Site Guide Performed By: #### C 8, C400, C215, C408, C47 #### [facility] [address] [place] [address] [address] [place] [address] ImmGrn % 0.2 % Normal 0.0-3.0 [facility] Comment on above: Order Comment: Items in this order include: Comprehensive Metabolic Panel, Lipid Panel, Free T4, TSH, CBC with differential, , , Testing Performed By: [facility] [address] [place] [address] [address] [address] Anderson Reid, Historical Site Guide Performed By: #### C 8, C400, C215, C408, C47 #### [facility] [address] [place] [address] [address] [place] [address] Lymphocytes (Bld) [#/Vol] 1.2 K CUMM Normal 0.7-4.5 [facility] Comment on above: Order Comment: Items in this order include: Comprehensive Metabolic Panel, Lipid Panel, Free T4, TSH, CBC with differential, , , Testing Performed By: [facility] [address] [place], [place] [id number] Dr. Anderson Reid, Historical Site Guide Performed By: #### C 8, C400, C215, C408, C47 #### [facility] [address] [place] [address] [place] [address] Lymphocytes/100 WBC (Bld) 26.0 % Normal 14.0-46.0 [facility] Comment on above: Order Comment: Items in this order include: Comprehensive Metabolic Panel, Lipid Panel, Free T4, TSH, CBC with differential, , , Testing Performed By: [facility] [address] [place] [address] [address] [address] Anderson Reid, Historical Site Guide Performed By: #### C 8, C400, C215, C408, C47 #### [facility], [facility]. [address] [place] [address] [address] [place] [address] MCH (RBC) [Entitic mass] 31.2 pg High 27.0-31.0 [facility] Comment on above: Order Comment: Items in this order include: Comprehensive Metabolic Panel, Lipid Panel, Free T4, TSH, CBC with differential, , , Testing Performed By: [facility] [address] [place] [address] Dr. Anderson Reid, Historical Site Guide Performed By: #### C 8, C400, C215, C408, C47 #### [facility], [facility]. [address] [place] [address] [address] [place] [address] MCHC (RBC) [Mass/Vol] 32.4 g/dL Normal 32.0-36.0 [facility] Comment on above: Order Comment: Items in this order include: Comprehensive Metabolic Panel, Lipid Panel, Free T4, TSH, CBC with differential, , , Testing Performed By: [facility] [address] [place] [address] Dr. Anderson Reid, Historical Site Guide Performed By: #### C 8, C400, C215, C408, C47 #### [facility]. [address] [place] [address] [address] [place] [address] MCV (RBC) [Entitic vol] 96.3 fL Normal 78.0-100.0 [facility] Comment on above: Order Comment: Items in this order include: Comprehensive Metabolic Panel, Lipid Panel, Free T4, TSH, CBC with differential, , , Testing Performed By: [facility] [address] [place] [address] Dr. Anderson Reid, Historical Site Guide Performed By: #### C 8, C400, C215, C408, C47 #### [facility] [address] [place] [address] [address] [place] [address] Monocytes (Bld) [#/Vol] 0.6 K CUMM Normal 0.1-1.0 [facility] Comment on above: Order Comment: Items in this order include: Comprehensive Metabolic Panel, Lipid Panel, Free T4, TSH, CBC with differential, , , Testing Performed By: [facility] [address] [place] [address] Dr. Anderson Reid, Historical Site Guide Performed By: #### C 8, C400, C215, C408, C47 #### [facility], [facility]. [address] [place] [address] [address] [place] [address] Monocytes/100 WBC (Bld) 12.6 % Normal 4.0-13.0 [facility] Comment on above: Order Comment: Items in this order include: Comprehensive Metabolic Panel, Lipid Panel, Free T4, TSH, CBC with differential, , , Testing Performed By: [facility] [address] [place] [address]. [place] [address] Dr. Anderson Reid, Historical Site Guide Performed By: #### C 8, C400, C215, C408, C47 #### [facility], [facility]. [address] [place] [address] [address] [place] [address] Neutrophils (Bld) [#/Vol] 2.6 K CUMM Normal 1.8-7.8 [facility] Comment on above: Order Comment: Items in this order include: Comprehensive Metabolic Panel, Lipid Panel, Free T4, TSH, CBC with differential, , , Testing Performed By: [facility] [address] [place] [address] [address] [address] Anderson Reid, Historical Site Guide Performed By: #### C 8, C400, C215, C408, C47 #### [facility], [facility]. [address] [place] [address] [place] [address] Neutrophils/100 WBC (Bld) 57.7 % Normal 40.0-74.0 [facility] Comment on above: Order Comment: Items in this order include: Comprehensive Metabolic Panel, Lipid Panel, Free T4, TSH, CBC with differential, , , Testing Performed By: [facility] [address] [place] [address] [address] [address] Anderson Reid, Historical Site Guide Performed By: #### C 8, C400, C215, C408, C47 #### [facility]. [address] [place] [address] [address] [place] [address] Platelet mean volume (Bld) [Entitic vol] 10.0 fL Normal 8.9-12.6 [facility] Comment on above: Order Comment: Items in this order include: Comprehensive Metabolic Panel, Lipid Panel, Free T4, TSH, CBC with differential, , , Testing Performed By: [facility] [address] [place] [address]. [place] [address] Dr. Anderson Reid, Historical Site Guide Performed By: #### C 8, C400, C215, C408, C47 #### [facility] [address] [facility] [address] [place] [address] Platelets (Bld) [#/Vol] 245 K CUMM Normal 130-400 [facility] Comment on above: Order Comment: Items in this order include: Comprehensive Metabolic Panel, Lipid Panel, Free T4, TSH, CBC with differential, , , Testing Performed By: [facility] [address] [place] [address]. [place] [address] Dr. Anderson Reid, Historical Site Guide Performed By: #### C 8, C400, C215, C408, C47 #### [facility] [address] [place] [address] [address] [place] [address] RBC (Bld) [#/Vol] 4.10 M CUMM Normal 3.80-5.10 [facility] Comment on above: Order Comment: Items in this order include: Comprehensive Metabolic Panel, Lipid Panel, Free T4, TSH, CBC with differential, , , Testing Performed By: [facility] [address] [place] [address]. [place] [address] Dr. Anderson Reid, Historical Site Guide Performed By: #### C 8, C400, C215, C408, C47 #### [facility] [address] [place] [address] [address] [place] [address] WBC (Bld) [#/Vol] 4.5 K CUMM Normal 3.8-10.6 [facility] Comment on above: Order Comment: Items in this order include: Comprehensive Metabolic Panel, Lipid Panel, Free T4, TSH, CBC with differential, , , Testing Performed By: [facility] [address] [place] [address]. [place] [address] Dr. Anderson Reid, Historical Site Guide Performed By: #### C 8, C400, C215, C408, C47 #### [facility] [address] [place] [address] [place] [address] Comprehensive Metabolic Pane krishna 10-08-2020 Albumin [Mass/Vol] 4.3 g/dL Normal 3.5-5.0 [facility] Comment on above: Order Comment: Items in this order include: Comprehensive Metabolic Panel, Lipid Panel, Free T4, TSH, CBC with differential, , , Testing Performed By: [facility] [address] [place], [place] [id number] Dr. Anderson Reid, Historical Site Guide Performed By: #### C 8, C400, C215, C408, C47 #### [facility] [address] [place] [address] Suite - [place] [id number] Alk Phos 53 U/L Normal 23-159 [facility] Comment on above: Order Comment: Items in this order include: Comprehensive Metabolic Panel, Lipid Panel, Free T4, TSH, CBC with differential, , , Testing Performed By: [facility] [address] [place], [place] [id number] Dr. Anderson Reid, Historical Site Guide Performed By: #### C 8, C400, C215, C408, C47 #### [facility], [facility]. [address] [place] [address] [place] [address] ALT [Catalytic activity/Vol] 62 U/L High 0-38 [facility] Comment on above: Order Comment: Items in this order include: Comprehensive Metabolic Panel, Lipid Panel, Free T4, TSH, CBC with differential, , , Testing Performed By: [facility] [address] [place], [place] [id number] Dr. Anderson Reid, Historical Site Guide Performed By: #### C 8, C400, C215, C408, C47 #### [facility] [address] [place] [address] [address] [place] [address] AST [Catalytic activity/Vol] 52 U/L High 11-43 [facility] Comment on above: Order Comment: Items in this order include: Comprehensive Metabolic Panel, Lipid Panel, Free T4, TSH, CBC with differential, , , Testing Performed By: [facility] [address] [place] [address]. [place] [address] Dr. Anderson Reid, Historical Site Guide Performed By: #### C 8, C400, C215, C408, C47 #### [facility] [address] [place] [address] [address] [place] [address] Bilirubin [Mass/Vol] 0.8 mg/dL Normal 0.2-1.3 [facility] Comment on above: Order Comment: Items in this order include: Comprehensive Metabolic Panel, Lipid Panel, Free T4, TSH, CBC with differential, , , Testing Performed By: [facility] [address] [place] [address]. [place], [place] [address] Dr. Anderson Reid, Historical Site Guide Performed By: #### C 8, C400, C215, C408, C47 #### [facility] [address] [place] [address] [address] [place] [address] Calcium [Mass/Vol] 9.4 mg/dL Normal 8.5-10.5 [facility] Comment on above: Order Comment: Items in this order include: Comprehensive Metabolic Panel, Lipid Panel, Free T4, TSH, CBC with differential, , , Testing Performed By: [facility] [address] [place] [address]. [place] [address] Dr. Anderson Reid, Historical Site Guide Performed By: #### C 8, C400, C215, C408, C47 #### [facility] [address] [place] [address] [address] [place] [address] Chloride [Moles/Vol] 103 mmol/L Normal 98-107 [facility] Comment on above: Order Comment: Items in this order include: Comprehensive Metabolic Panel, Lipid Panel, Free T4, TSH, CBC with differential, , , Testing Performed By: [facility] [address] [place] [address]. [place] [address] Dr. Anderson Reid, Historical Site Guide Performed By: #### C 8, C400, C215, C408, C47 #### [facility] [address] [place] [address] [address] [place] [address] CO2 [Moles/Vol] 29.0 mmol/L Normal 21.0-32.0 [facility] Comment on above: Order Comment: Items in this order include: Comprehensive Metabolic Panel, Lipid Panel, Free T4, TSH, CBC with differential, , , Testing Performed By: [facility] [facility] [address] [place] [address] Dr. Anderson Reid, Historical Site Guide Performed By: #### C 8, C400, C215, C408, C47 #### [facility] [address] [place] [address] Creatinine [Mass/Vol] 0.6 mg/dL Normal 0.1-1.2 [facility] Comment on above: Order Comment: Items in this order include: Comprehensive Metabolic Panel, Lipid Panel, Free T4, TSH, CBC with differential, , , Testing Performed By: [facility] [address] [place] [address]. [place] [address] Dr. Anderson Reid, Historical Site Guide Performed By: #### C 8, C400, C215, C408, C47 #### [facility] [address] [place] [address] GFR/1.73 sq M.predicted MDRD (S/P/Bld) [Vol rate/Area] 101 mL/min per 1.73 Normal >60 [facility] Comment on above: Order Comment: Items in this order include: Comprehensive Metabolic Panel, Lipid Panel, Free T4, TSH, CBC with differential, , , Testing Performed By: [facility] [address] [place] [address]. [place] [address] Dr. Anderson Reid, Historical Site Guide Result Comment: The GFR estimate is not adjusted for race. If the patient's race is -Scottish, the GFR estimate must be multiplied by a factor of 1.21. Performed By: #### C 8, C400, C215, C408, C47 #### [facility] [address] [place] [address] Glucose [Mass/Vol] 101 mg/dL High 74-100 [facility] Comment on above: Order Comment: Items in this order include: Comprehensive Metabolic Panel, Lipid Panel, Free T4, TSH, CBC with differential, , , Testing Performed By: [facility] [address] [place] [address] Dr. Anderson Reid, Historical Site Guide Performed By: #### C 8, C400, C215, C408, C47 #### [facility] [address] [place] [address] [address] [place] [address] Potassium [Moles/Vol] 4.9 mmol/L Normal 3.5-5.3 [facility] Comment on above: Order Comment: Items in this order include: Comprehensive Metabolic Panel, Lipid Panel, Free T4, TSH, CBC with differential, , , Testing Performed By: [facility] [address] [place] [address] Dr. Anderson Reid, Historical Site Guide Performed By: #### C 8, C400, C215, C408, C47 #### [facility], [facility] [address] [place] [address] [address] [place] [address] Protein [Mass/Vol] 6.9 g/dL Normal 6.3-8.4 [facility] Comment on above: Order Comment: Items in this order include: Comprehensive Metabolic Panel, Lipid Panel, Free T4, TSH, CBC with differential, , , Testing Performed By: [facility] [address] [place] [address] [address] [address] Anderson Reid, Historical Site Guide Performed By: #### C 8, C400, C215, C408, C47 #### [facility], [facility] [address] [place] [address] [address] [place] [address] Sodium [Moles/Vol] 141 mmol/L Normal 135-145 [facility] Comment on above: Order Comment: Items in this order include: Comprehensive Metabolic Panel, Lipid Panel, Free T4, TSH, CBC with differential, , , Testing Performed By: [facility] [address] [place] [address]. [place] [address] Dr. Anderson Reid, Historical Site Guide Performed By: #### C 8, C400, C215, C408, C47 #### [facility] [address] [place] [address] Urea nitrogen [Mass/Vol] 14 mg/dL Normal 6-22 [facility] Comment on above: Order Comment: Items in this order include: Comprehensive Metabolic Panel, Lipid Panel, Free T4, TSH, CBC with differential, , , Testing Performed By: [facility] [address] [place] [address]. [place] [address] Dr. Anderson Reid, Historical Site Guide Performed By: #### C 8, C400, C215, C408, C47 #### [facility] [address] [facility] [address] [place] [address] Free T4on 10-08-2020 Free T4 [Mass/Vol] 1.0 ng/dL Normal 0.7-1.8 [facility] Comment on above: Order Comment: Items in this order include: Comprehensive Metabolic Panel, Lipid Panel, Free T4, TSH, CBC with differential, , , Testing Performed By: [facility] [address] [place] [address]. [place] [address] Dr. Anderson Reid, Historical Site Guide Performed By: #### C 8, C400, C215, C408, C47 #### [facility] [address] [facility] [address] [place] [address] Lipid Panelon 10-08-2020 Cholesterol [Mass/Vol] 139 mg/dL Normal <200 [facility] Comment on above: Performed By: #### C 8, C400, C215, C408, C47 #### [facility] [address] [facility] [place] [address] Cholesterol in HDL [Mass/Vol] 89 mg/dL Normal >50 [facility] Comment on above: Performed By: #### C 8, C400, C215, C408, C47 #### [facility] [address] [place] [address] Cholesterol in LDL [Mass/Vol] 39 mg/dL Normal <130 [facility] Comment on above: Performed By: #### C 8, C400, C215, C408, C47 #### [facility] [address] [place] [address] [place] [address] Cholesterol.total/Margot sterol in HDL [Mass ratio] 1.6 {ratio} Normal <4.0 [facility] Comment on above: Performed By: #### C 8, C400, C215, C408, C47 #### [facility] [address] [place] [address] [place] [address] Non-HDL Chol 50 Normal LDL Goal + 30 [facility] Comment on above: Result Comment: LDL and Non-HDL goal dependent upon individual risk Performed By: #### C 8, C400, C215, C408, C47 #### [facility] [address] [place] [address] [place] [address] Triglyceride [Mass/Vol] 53 mg/dL Normal <150 [facility] Comment on above: Performed By: #### C 8, C400, C215, C408, C47 #### [facility] [address] [place] [address] [place] [address] VLDL-Calc 11 mg/dl Normal <30 [facility] Comment on above: Performed By: #### C 8, C400, C215, C408, C47 #### [facility] [address] [place] [address] [place] [address] TSHon 10-08-2020 TSH Qn 2.42 MIU/mL Normal 0.50-6.00 [facility] Comment on above: Order Comment: Items in this order include: Comprehensive Metabolic Panel, Lipid Panel, Free T4, TSH, CBC with differential, , , Testing Performed By: [facility] [address] [place] [address] Dr. Anderson Reid, Historical Site Guide Performed By: #### C 8, C400, C215, C408, C47 #### [facility] [address] [place] [address] Rd [address] [place] [address] Coronavirus (COVID-19/SARS-C oV-2) RAPIDon 12-27-2019 [facility] Comment on above: Result Comment: This test was performed via the [employer] NOW COVID-19 assay and has been authorized by FDA under an Emergency Use Authorization (EUA). The assay is validated for nasopharyngeal (FRUIT EXPRESS AGENT), nasal, and oropharyngeal (OP) direct swabs. The limit of detection of the assay is approximately 125 genome equivalence/mL; however, detection of SARS-CoV-2 may be affected by the sample collection and transport methods, patient factors (e.g., presence of symptoms, and/or stage of infection), and a negative result does not rule out the possibility of infection. For updated information, refer to the Center for Disease Control website: www.cdc.gov/coronavirus. Performed By: #### C [id number] #### [facility] [address] [place] [address] Vital Signs Date Time Vital Sign Value Performing Clinician Facility 08-09-2024 09:45-0500 Diastolic blood pressure 78 mm[Hg] [facility] 08-09-2024 09:45-0500 Heart rate 59 /min [facility] 08-09-2024 09:45-0500 Respiratory rate 16 /min [facility] 08-09-2024 09:45-0500 SaO2% (BldA) [Mass fraction] 99 % [facility] 08-09-2024 09:45-0500 Systolic blood pressure 163 mm[Hg] [facility] 08-09-2024 07:47-0500 Body height 177.8 cm [facility] 08-09-2024 07:47-0500 Body weight 113.39 kg [facility] 06-23-2024 08:44-0500 Body height 177.8 cm [facility] 06-23-2024 08:44-0500 Body mass index (BMI) [Ratio] 37 kg/m2 [facility] 06-23-2024 08:44-0500 Body weight 117 kg [facility] 06-16-2024 13:59-0500 Body height 177.8 cm [facility] 06-16-2024 13:59-0500 Body mass index (BMI) [Ratio] 37 kg/m2 [facility] 06-16-2024 13:59-0500 Body weight 117.02 kg [facility] 05-04-2024 11:30-0400 Body height 175.3 cm Jr. Stepanic DO Work Phone: [facility] 05-04-2024 11:30-0400 Body mass index (BMI) [Ratio] 35.44 kg/m2 Jr. Stepanic DO Work Phone: [facility] 05-04-2024 11:30-0400 Body weight 108.86 kg Jr. Stepanic DO Work Phone: [facility] 06-07-2019 11:19-0500 BMI (Body Mass Index) 33.58 kg/m2 [facility] 06-07-2019 11:19-0500 Body Temperature 98.6 [degF] [facility] 06-07-2019 11:19-0500 Body weight 106.14 kg [facility] 06-07-2019 11:19-0500 BP Diastolic 77 mm[Hg] [facility] 06-07-2019 11:19-0500 BP Systolic 113 mm[Hg] [facility] 06-07-2019 11:19-0500 Height 177.8 cm [facility] 06-07-2019 11:19-0500 Pulse (Heart Rate) 75 /min [facility] 06-07-2019 11:19-0500 Pulse Oximetry 96 % [facility] 06-07-2019 11:19-0500 Respiratory Rate 16 /min [facility] Encounters Encounter Date Encounter Type Care Provider Facility Start: 10-12-2024 End: 10-12-2024 Office outpatient visit 15 minutes Rolf Alan MD Work Phone: [facility] Comment on above: Rash and other nonsp ecific skin eruption (Primary Dx); 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, including hip; Lentigines Start: 10-12-2024 End: 10-12-2024 ambulatory ROLF ALAN Not Available Start: 10-12-2024 End: 10-12-2024 Bamboo flowsarielle Alan MD Work Phone: [facility] Start: 10-12-2024 End: 10-12-2024 Bamboo flowsarielle Alan MD Work Phone: [facility] Start: 09-01-2024 End: 09-01-2024 Bamboo flowsheet Misael Church Felter ROUND CUTTER OPERATOR-CONTRACT ACCOUNTANT Work Phone: [facility] Start: 09-01-2024 End: 09-01-2024 Bamboo flowsheet Misael Church Felter ROUND CUTTER OPERATOR-CONTRACT ACCOUNTANT Work Phone: [facility] Start: 09-01-2024 End: 09-01-2024 ambulatory MISAEL SALGADOER Not Available Start: 09-01-2024 End: 09-01-2024 Patient encounter procedure Misael Church Felter ROUND CUTTER OPERATOR-CONTRACT ACCOUNTANT Work Phone: [facility] Comment on above: Neoplasm of unspecif ied behavior of bone, soft tissue, and skin (Primary Dx) Start: 08-09-2024 Non-patient / Non-visit [facility] Work Phone: Start: 08-09-2024 End: 08-09-2024 Admission to same day surgery center [facility] Work Phone: Start: 08-09-2024 End: 08-09-2024 ambulatory NON STAFF [facility] Work Phone: Start: 07-20-2024 End: 07-20-2024 Kimberli Rivera DO Work Phone: [facility] Start: 07-20-2024 End: 07-20-2024 Kimberli Rivera DO Work Phone: [facility] Start: 07-20-2024 End: 07-20-2024 ambulatory SHARLA APONTE Not Available Start: 07-20-2024 End: 07-20-2024 Office outpatient visit 15 minutes Jr. Sharla Rivera DO Work Phone: [facility] Comment on above: Strain of lumbar reg ion, initial encounter (Primary Dx); Pain of lumbar spine Start: 06-23-2024 End: 06-23-2024 Patient encounter procedure [facility] Work Phone: Start: 06-20-2024 End: 06-20-2024 Patient encounter procedure [facility] [place] Work Phone: Start: 06-20-2024 End: 06-20-2024 ambulatory Tung Holliday II Facility:[facility] Start: 06-17-2024 ambulatory Tung [place] II Fa cility:[facility] Start: 06-16-2024 End: 06-16-2024 Patient encounter procedure [facility] Work Phone: Start: 06-16-2024 End: 06-16-2024 ambulatory Tung Holliday II Facility:[facility] Start: 05-25-2024 End: 05-25-2024 Kimberli Rivera DO Work Phone: [facility] Start: 05-25-2024 End: 05-25-2024 Bamsofia Alfred Stepjl DO Work Phone: [facility] Start: 05-25-2024 End: 05-25-2024 Office outpatient visit 25 minutes Jr. Sharla Rivera DO Work Phone: [facility] Comment on above: Acute hip pain, left (Primary Dx); History of left hip replacement; Strain of lumbar region, initial encounter Start: 05-25-2024 End: 05-25-2024 ambulatory SHARLA APONTE Not Available Start: 05-04-2024 End: 05-04-2024 Bambocrista Rivera DO Work Phone: [facility] Start: 05-04-2024 End: 05-04-2024 Bamboo flowsheet Jr. Sharla Alfred Stepanic DO Work Phone: [facility] Start: 05-04-2024 End: 05-04-2024 ambulatory SHARLA APONTE NICOLE Not Available Start: 05-04-2024 End: 05-04-2024 Office outpatient visit 25 minutes Jr. Sharla Coxjl DO Work Phone: [facility] Comment on above: Acute hip pain, left (Primary Dx); History of left hip replacement Start: 12-29-2023 ambulatory [facility] Start: 01-07-2021 ambulatory DERRELL Cruz lity:[facility] Start: 10-12-2020 ambulatory LISA Johnson ity:[facility] Start: 09-13-2020 End: 09-13-2020 Orders Only Rita Sellers Work Phone: [facility] Start: 06-07-2019 End: 06-07-2019 Patient encounter procedure LISA FITCH [facility] Start: 06-07-2019 End: 06-07-2019 Office outpatient new 45 minutes Jean Carlos Lipscomb Work Phone: [facility] [place] Comment on above: Viral URI with cough (Primary Dx); Acute non-recurrent frontal sinusitis Procedures Date Procedure Procedure Detail Performing Clinician Start: 10-12-2024 DESTRUCTION OF LESION Mary Ann Alan MD Work Phone: Start: 09-01-2024 SKIN / NAIL BIOPSY Sydnee Parisi ROUND CUTTER OPERATOR-CONTRACT ACCOUNTANT Work Phone: Start: 08-09-2024 Screening colonoscopy Start: 06-16-2024 Plain X-ray of left hip Start: 05-04-2024 Radex hip unilateral with pelvis 2-3 views Jr. Sharla Alfred Nicole DO Work Phone: Start: 01-19-2019 Colonoscopy Jr. Antolin mejia DO Work Phone: Plan of Treatment Date Care Activity Detail Author Start: 01-19-2029 Screening for malignant neoplasm of colon [facility] Start: 04-13-2025 End: 04-13-2025 Patient encounter procedure 04/13/2025 11:20 AM EDT Office Visit [facility] [address] [place] [phone] Misael Parisi, ROUND CUTTER OPERATOR-CONTRACT ACCOUNTANT [address] [place] [address] [facility] Start: 01-25-2025 Tetanus vaccination Tetanus: Every 10yrs [facility] Start: 10-12-2024 End: 10-12-2024 Patient encounter procedure 10/12/2024 2:50 PM EDT Office Visit [facility] [address] [place] [phone] Rolf Alan MD [address] [place] [address] Arrived [facility] Comment on above: Arrived Start: 09-20-2024 End: 09-20-2024 Patient encounter procedure 09/20/2024 1:55 PM EDT Office Visit [facility] [address] [place] [phone] Misael Parisi, ROUND CUTTER OPERATOR-CONTRACT ACCOUNTANT [address] [place] [address] [facility] Start: 08-09-2024 [facility] Start: 07-20-2024 End: 07-20-2024 Patient encounter procedure 07/20/2024 11:15 AM EST Office Visit [facility] [address] [place] [phone] Jr. Sharla Rivera DO [address] [facility] [address] [place] [address] [facility] Start: 05-25-2024 End: 05-25-2024 Patient encounter procedure 05/25/2024 10:45 AM EST Office Visit [facility] [address] [place] [address] Jr. Sharla Rivera, DO [address] [place] [address] [facility] Start: 05-04-2024 End: 05-04-2025 NM Whole body Bone 3 Phase Views NM bone 3 phase Imaging Routine Acute hip pain, left History of left hip replacement Expected: 05/04/2024, Expires: 05/04/2025 [facility] Work Phone: Comment on above: Expected: 05/04/2024, Expires: Start: 03-13-2024 Influenza vaccination Influenza Vaccine (#1) [facility] Start: 2008 Administration of herpes zoster vaccine Zoster Vaccines (1 of 2) [facility] Start: 2008 Screening for malignant neoplasm of colon [facility] Start: 1998 Screening for malignant neoplasm of breast Mammogram [facility] Start: 1988 Screening for malignant neoplasm of cervix [facility] Start: 10-04-1979 Screening for malignant neoplasm of cervix Pap Smear [facility] Start: 1976 Hepatitis C antibody, confirmatory test Hepatitis C Screening [facility] Start: 1974 COVID-19 Vaccine (1 of 2) COVID-19 Vaccine (1 of 2) [facility] Start: 1973 HIV screening HIV Screening [facility] Start: 1970 Adolescent depression screening assessment Depression Screening (PHQ9) [facility] Start: 1961 History and physical examination, annual for health maintenance Wellness Visit [facility] Start: 1958 Hepatitis C antibody, confirmatory test HEPATITIS C SCREENING [facility] Start: 1958 Screening for malignant neoplasm of cervix PAP SMEAR [facility] Start: 1958 Screening for malignant neoplasm of colon [facility] Start: 1958 Screening mammography Mammogram [facility] Start: 1958 Tetanus vaccination TETANUS EVERY 10 YR [facility] Dermatopathology exam Dermatopat hology exam Pathology and Cytology Timed Neoplasm of unspecified behavior of bone, soft tissue, and skin Release Upon Ordering for 1 Occurrences starting 09/01/2024 [facility] Work Phone: Comment on above: Release Upon Ordering for 1 Occurrences starting 09/01/2024 Patient Education Hemorrhoids Co krishna polyps Know your Meds [facility] Work Phone: Immunizations Immunization Date Immunization Notes Care Provider Beba anderson 05-27-2023 influenza virus vacc ine, unspecified formulation Stepanic DO Work Phone: [facility] Payers Date Payer Category Payer Self-pay 2023 [facility] [id number] 2023 Medicare MEDICARE [id number] 2023 Medicare [id number] 2023 Unknown [id number] 2019 Unknown [id number] 2019 Unknown MMO MED M[employer] S UPERMED PPO [id number] 2019-Present [id number] 2019 Unknown MMO MED MUT[employer] S UPERMED PPO [id number] 2019-Present [id number] 1958 Unknown [id number] 1958 Unknown [id number] [id number] .594 1958 Unknown [id number] [id number] .594 1958 Unknown [id number] [id number] .1259 1958 Unknown [id number] [id number] .1259 1958 Unknown [id number] 2.16.840.1.293287.3.579.2 .1259 1958 Unknown [id number] [id number] .1259 1958 Unknown [id number] [id number] .1259 1958 Unknown [id number] 2.16.840.1.854998.3.579.2 .1259 Unknown [id number] 2.16.840.1.675879.3.579.2 .531 Unknown [id number] 2.16.840.1.564983.3.579.2 .531 Unknown [id number] 2.16.840.1.000742.3.579.2 .531 Unknown [id number] [id number] .531 Social History Date Type Detail Facility Start: 06-07-2019 End: 05-04-2024 Tobacco smoking status NHIS Former smoker [facility] End: 07-13-1997 History of tobacco use Current smoker [facility] Start: 06-07-2019 End: 09-01-2024 Cigarettes smoked current (pack per day) - Reported [facility] Start: 06-07-2019 Alcohol intake Current drinke r of alcohol (finding) [facility] Start: 06-13-2016 Alcohol Comment avg 1-2 glasse s wine daily [facility] Start: 1960 Sex Assigned At Not on file [facility] Start: 06-07-2019 End: 05-04-2024 Tobacco use and exposure Never used [facility] Tobacco smoking stat [facility] Tobacco smoking consumption unknown [facility] Start: 05-04-2024 End: 09-01-2024 Gender identity Not on file [facility] History of tobacco use Cigarette Smoker [facility] Start: 08-09-2024 Sex Female (finding) [facility] Start: 1960 Sex Assigned At Female F [facility] Medical Equipment Procedure Code Equipment Code Equipment Origin al Text Equipment Identifier Dates 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 APEX DEPUY HIP HOLE ELIMINATOR FDA Start: 12-23-2018 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 CUP DEPUY HIP FDA Start: 12-23-2018 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 HEAD DEPUY ARTICUL/KIANNA 32MM +5 FDA Start: 12-23-2018 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 LINER DEPUY HIP FDA Start: 12-23-2018 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 SCREW DEPUY 6.5X20MM CANCELLOU FDA Start: 12-23-2018 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 STEM DEPUY SIZE 13 STD COLLAR FDA Start: 12-23-2018 Plate 4hl Std Co mp Lapidus Rt Precision Guide P28 - [id number] Start: 06-26-2016 Comment on above: Description: LOAD #1 86 STERILIZED 06/11/16 Screw 4 X 42mm Ten Short Thrd Headed Mini-Monster P28 - [id number] Start: 06-26-2016 Comment on above: Description: LOAD #4 2 STERILIZED 06/26/16 Screw 3.5 X 18mm Lock R3con P28 - [id number] Start: 06-26-2016 Comment on above: Description: LOAD #1 86 STERILIZED 06/25/16 Screw 3.5 X 18mm Non-Lock R3con P28 - [id number] Start: 06-26-2016 Comment on above: Description: LOAD #1 86 STERILIZED 06/25/16 Plate Med 2nd/3r d Tmt Dual Ray Lisfranc Rt P28 - [id number] Start: 06-26-2016 Comment on above: Description: LOAD #1 86 STERILIZED 06/24/16 Screw 3.5 X 20mm Lock R3con P28 - [id number] Start: 06-26-2016 Comment on above: Description: LOAD #1 86 STERILIZED 06/25/16 Goals Date Patient Goal Desired Activity /State Clinical Notes 05-04-2024 to 10-12-2024 Rolf Alan MD - 10/12/2024 2:50 PM Nahid Parisi APRN-RENAN - 09/01/2024 1:25 PM ESTJr. Sharla Rivera, - 07/20/2024 11:15 AM EST Note Date & Type Note Facility 10-12-2024 History of Presen t illness Narrative Images from the original note were not included. Skin Check Location: Patient requests a full body skin examination Dermatologic history: history of Squamous Cell Carcinoma Last visit: 08/2024 Ryan Shepherd is a 64 y.o. female who presents for the following: No chief complaint on file. Location: left lower leg anterior Date of biopsy: 09/01/2024 Diagnosis: Squamous cell carcinoma in situ Established patient All pertinent medical history, medications, and allergies were reviewed. General Exam: alert, oriented to person, place, and time, normal affect, well appearing Unaccompanied Scalp, Examined , exam limited by hair Right leg Examined Head, Face Examined Left leg Examined Neck Examined Right foot Examined Chest Examined Left foot Examined Back Examined Buttocks Examined Abdomen Examined Digits,nails: Examined Right arm Examined Left arm Examined Lymphatics: Not examined Hands Examined 1. Rash and other nonspecific skin eruption Buttocks Clear today Notify office if worsening and patient may call for appointment 2. 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, including hip Left Lower Leg - Anterior Erythematous macule at biopsy site Destr of lesion Complexity: simple Destruction method: electrodesiccation and curettage Informed consent: discussed and consent obtained Informed consent comment: The risks of the procedure were discussed, including, but not limited to risks of scarring, darker or peoplesoft analyst pigmentary changes, recurrence, infection, and incomplete removal Timeout: patient name, date of , surgical site, and procedure verified Timeout comment: Patient and provider identified site. Site was marked. Photo was taken and shown to patient, patient verified this is the correct site. Procedure prep: Patient was prepped and draped in usual sterile fashion Prep type: Chlorhexidine Anesthesia: the lesion was anesthetized in a standard fashion Anesthetic: 1% lidocaine w/ epinephrine 1-100,000 buffered w/ 8.4% NaHCO3 Curettage performed in three different directions: Yes Electrodesiccation performed over the curetted area: Yes Curettage cycles: 3 Lesion length (cm): 0.4 Lesion width (cm): 0.3 Margin per side (cm): 0 Final wound size (cm): 0.4 Hemostasis achieved with: electrodesiccation Outcome: patient tolerated procedure well with no complications Post-procedure details: wound care instructions given Post-procedure details comment: Post-procedure instructions were given verbally and in writing. The office will be contacted if the lesion fails to resolve despite treatment, or if a side effect develops such as abnormal crusting, scabbing, reddness, discharge, or tenderness. Additional details: Amount of lidocaine used: 3.0 ml Previous accession number: [id number] Discussed treatment options including excision vs ED&C. Discussed risks/benefits of each option, patient elected for ED&C today. Patient instructed to notify office of any signs of recurrence prior to next scheduled visit. 3. Lentigines Scattered tinoco macules in sun-exposed areas. The patient was informed that lentigines are benign pigmented lesions that occur on sun-exposed and sun-damaged skin. No treatment is necessary. Recommended regular use of broad spectrum sunscreen SPF 30 or higher Next Visit: 6 months documented in this encounter [facility] 09-01-2024 History of Presen t illness Narrative Lesions: Location: left lower leg Duration: year Quality: denies pain, denies itch, denies bleeding Modifying factors: patient lesion off in the past and shaved lesion off Associated symptoms: rough Treatments: none Patient declined a full/waist up skin exam today. Patient denies any history of skin cancer. New patient All pertinent medical history, medications, and allergies were reviewed. General Exam: alert, oriented to person, place, and time, normal affect, well appearing Unaccompanied A focused exam completed based on patient reported problems, see below: 1. Neoplasm of unspecified behavior of bone, soft tissue, and skin Left Lower Leg - Anterior Scabbing noted Lesion biopsy Type of biopsy: tangential Informed consent: discussed and consent obtained Informed consent comment: The risks and benefits of the biopsy were discussed. Risks include but are not limited to bleeding, infection, scarring, pain, and nerve damage. An opportunity to ask questions prior to the procedure was permitted and all questions were answered. Patient was prepped and draped in usual sterile fashion: area cleansed with alcohol. Anesthesia: the lesion was anesthetized in a standard fashion Anesthetic: 1% lidocaine w/ epinephrine 1-100,000 buffered w/ 8.4% NaHCO3 Instrument used: DermaBlade Hemostasis achieved with: electrodesiccation Outcome: patient tolerated procedure well Outcome comment: The specimen was placed in a prelabeled formalin container to be sent for pathology Post-procedure details: sterile dressing applied and wound care instructions given Post-procedure details comment: Emphasized need to contact clinic for any signs of infection, uncontrollable bleeding, or complications. Dressing type: bandage Additional details: Photo taken Amount of lidocaine used: 1.0 cc Specimen A - Dermatopathology exam Differential Diagnosis: SCC vs ISK vs other Check Margins: No Size of lesion: 0.4 x 0.3 cm Shave biopsy today, see procedure note. Patient will be notified of results. Follow up pending biopsy results. A, B, C, D, E's melanoma handout provided to patient. Next Visit: pending biopsy results, Recommended FBSE documented in this encounter [facility] 08-09-2024 Procedure note [facility] enter 08-09-2024 History and physi abhay note [facility] enter 07-20-2024 History of Presen t illness Narrative Images from the original note were not included. HISTORY OF PRESENT ILLNESS: EST PT Ary Shepherd is an 63 y.o. @ female. (EST PT) RECHECK LUMBAR / LOW BACK PAIN ; S/P PHYSICAL THERAPY (10 SESSIONS) @ [facility] REFERRAL TO DR HOLLIDAY GIVEN TO PT 05/25/24 FOR (L) SANDRA REVISION PREVIOUS (L) SANDRA 2015 - DR CHOWDARY ([place], [place]) XRAYS, (L) HIP 05/04/24 IN EPIC BONE SCAN 05/12/24 @ [facility] NO MDP / PREDNISONE S/P PHYSICAL THERAPY (10 SESSIONS) @ [facility] ; MAY - JUN 2024 NO PAIN MGMT HX SCOLIOSIS - LUMBAR THERAPY HAS IMPROVED BACK PAIN. CONTINUING WITH THERAPY FOR THE L HIP. NOTES THAT SHE DOES HAVE IMPROVEMENT BUT IT IS SLOW. NOTES FULL ROM BUT STATES THE HIP SLIPS - SOME SQUEAKING. CURRENTLY NO PAIN MEDS. PREVIOUS (R) SANDRA 12/23/18 - DR RIVERA ALLERGIES: Allergies Allergen Reactions Augmentin [Amoxicillin-Pot Clavulanate] Anaphylaxis Codeine GI intolerance and Dizziness HOME MEDICATIONS: Current Outpatient Medications Medication Instructions Naproxen Sodium (Aleve) 220 MG capsule Take by mouth PHYSICAL EXAM: Spine Musculoskeletal Exam Gait Gait is normal. Antalgic: left Limp: left Right Heel walk: able to heel walk Toe walk: able to toe walk Left Heel walk: able to heel walk Toe walk: able to toe walk Gait additional comments: Gait is slightly antalgic. Today, but markedly improved from last exam. Pain noted with deep palpation over the left sacroiliac joint, but improved from prior visit. Straight leg raise negative. Dorsalis pedis and posterior tibial pulses were present and equal bilaterally. Strength in major muscle groups and symmetrical bilaterally. Inspection Leg length disparity: no discrepancy Thoracolumbar Thoracolumbar inspection is normal. Erythema: none Swelling: none Palpation Thoracolumbar Thoracolumbar palpation is normal. Tenderness: present Right Masses: none Muscle tone: normal Left Masses: none Muscle tone: normal Range of Motion Thoracolumbar Range of motion is normal. Flexion: normal. Extension: normal. Right Lateral bending: normal. Lateral rotation: normal. Left Lateral bending: normal. Lateral rotation: normal. Strength Thoracolumbar Right Extensor hallucis longus: 5/5. Tibialis anterior: 5/5. Tibialis posterior: 5/5. Plantar flexion: 5/5. Peroneals: 5/5. Quadriceps: 5/5. Hamstrin/5. Hip abductors: 5/5. Hip flexion: 5/5. Hip adduction: 5/5. Left Extensor hallucis longus: 5/5. Tibialis anterior: 5/5. Tibialis posterior: 5/5. Plantar flexion: 5/5. Peroneals: 5/5. Quadriceps: 5/5. Hamstrin/5. Hip abductors: 5/5. Hip flexion: 5/5. Hip adduction: 5/5. Sensory Thoracolumbar Thoracolumbar sensation is normal. Spine sensation additional comments: NO FOCAL DEFICIT Reflexes Thoracolumbar reflexes are normal. Right Quadriceps: 2/4 Achilles: 2/4 Clonus: normal Left Quadriceps: 2/4 Achilles: 2/4 Clonus: normal Neurovascular Thoracolumbar Thoracolumbar neurovascular exam is normal. Right Pulses - PT: normal Posterior tibial: 2+ Left Pulses - PT: normal Posterior tibial: 2+ General Constitutional: appears stated age Psychiatric: normal mood and affect Neurological: alert and oriented x3 Skin: intact Vitals: There is no height or weight on file to calculate BMI. Tobacco Use: Medium Risk (07/20/2024) Patient History Smoking Tobacco Use: Former Smokeless Tobacco Use: Never Passive Exposure: Not on file Alcohol Use: Not on file IMAGING: Procedures No orders of the defined types were placed in this encounter. ASSESSMENT: ICD-10-CM 1. Strain of lumbar region, initial encounter S39.012A 2. Pain of lumbar spine M54.50 PLAN: Physical therapy for lumbar spine. Dr. Holliday's number was given to her for possible hip revision if she symptomatic. If still symptomatic would recommend a lumbar spine x-ray. Questions answered in laymen terms at the bedside. The diagnosis, home exercise plan and any ongoing restrictions/ recommendations reviewed. If unable to be reached in office, I recommend evaluation at nearest Emergency Room if any symptoms worsened or new symptoms develop for requiring urgent evaluation. documented in this encounter [place] [id number] Evaluation note Diagnosis Onset Date Resolution History of total left hip replacement acute June 16 1:41pm Greater trochanteric bursitis of left hip acute June 232023 8:39am History of total left hip replacement acute June 23 8:39am [facility] Work Phone: 1(180) 795-946811-13-2024 History of Present illness Narrative* Jr. Sharla Rivera, DO - 05/25/2024 10:45 AM EST Images from the original note were not included. HISTORY OF PRESENT ILLNESS: EST PT Ary Shepherd is an 63 y.o. @ female. (EST PT) RECHECK (L) HIP ; HERE FOR BONE SCAN RESULTS 05/12/24 @ [facility] PREVIOUS (L) SANDRA 2015 - DR CHOWDARY ([place], [place]) XRAYS, (L) HIP 05/04/24 IN EPIC BONE SCAN 05/12/24 @ [facility] NO MDP / PREDNISONE NO CURRENT PHYSICAL THERAPY NO PAIN MGMT HX SCOLIOSIS - LUMBAR CONTINUES TO HAVE CONSTANT ACHINESS ; PAIN IS LOCATED TO HER (L) LOWER BACK / POSTERIOR ASPECT - DENIES ANY RADIATING PAIN, NO N/T. NOTES FULL ROM BUT STATES THE HIP SLIPS - SOME SQUEAKING. CURRENTLY NO PAIN MEDS ; PREVIOUSLY TAKING ALEVE. PREVIOUS (R) SANDRA 12/23/18 - DR RIVERA ALLERGIES: Allergies Allergen Reactions Augmentin [Amoxicillin-Pot Clavulanate] Anaphylaxis Codeine GI intolerance and Dizziness HOME MEDICATIONS: Current Outpatient Medications Medication Instructions Naproxen Sodium (Aleve) 220 MG capsule Take by mouth PHYSICAL EXAM: Hip Musculoskeletal Exam Gait Gait is normal. Inspection Leg length disparity: no discrepancy Left Erythema: none Ecchymosis: none Edema: none Deformity: none Previous incision: anterolateral Incision: well-healed Palpation Left Left hip palpation is normal. Increased warmth: none Tenderness: present Range of Motion Left Left hip range of motion is within functional limits. Active ROM: normal. Passive ROM: normal. Range of motion additional comments: Audible creeking with any ROM Strength Right Flexion: 5/5. Adduction: 5/5. Left Left hip strength is normal. Extension: 5/5. Flexion: 5/5. Internal rotation: 5/5. External rotation: 5/5. Adduction: 5/5. Abduction: 5/5. Neurovascular Right Pulses - PT: normal Posterior tibial: 2+ Left Left hip neurovascular exam is normal. Pulses - PT: normal Posterior tibial: 2+ General Constitutional: appears stated age Psychiatric: normal mood and affect Neurological: alert and oriented x3 Skin: intact Spine Musculoskeletal Exam Gait Gait is normal. Inspection Leg length disparity: no discrepancy Thoracolumbar Thoracolumbar inspection is normal. Erythema: none Swelling: none Palpation Thoracolumbar Thoracolumbar palpation is normal. Tenderness: present Right Masses: none Muscle tone: normal Left Masses: none Muscle tone: normal Range of Motion Thoracolumbar Range of motion is normal. Flexion: normal. Extension: normal. Right Lateral bending: normal. Lateral rotation: normal. Left Lateral bending: normal. Lateral rotation: normal. Strength Thoracolumbar Right Extensor hallucis longus: 5/5. Tibialis anterior: 5/5. Tibialis posterior: 5/5. Plantar flexion: 5/5. Peroneals: 5/5. Quadriceps: 5/5. Hamstrin/5. Hip abductors: 5/5. Hip flexion: 5/5. Hip adduction: 5/5. Left Extensor hallucis longus: 5/5. Tibialis anterior: 5/5. Tibialis posterior: 5/5. Plantar flexion: 5/5. Peroneals: 5/5. Quadriceps: 5/5. Hamstrin/5. Hip abductors: 5/5. Hip flexion: 5/5. Hip adduction: 5/5. Sensory Thoracolumbar Thoracolumbar sensation is normal. Spine sensation additional comments: NO FOCAL DEFICIT Reflexes Thoracolumbar reflexes are normal. Right Quadriceps: 2/4 Achilles: 2/4 Clonus: normal Left Quadriceps: 2/4 Achilles: 2/4 Clonus: normal Neurovascular Thoracolumbar Thoracolumbar neurovascular exam is normal. Right Pulses - PT: normal Posterior tibial: 2+ Left Pulses - PT: normal Posterior tibial: 2+ General Constitutional: appears stated age Psychiatric: normal mood and affect Neurological: alert and oriented x3 Skin: intact Vitals: There is no height or weight on file to calculate BMI. Tobacco Use: Medium Risk (05/25/2024) Patient History Smoking Tobacco Use: Former Smokeless Tobacco Use: Never Passive Exposure: Not on file Alcohol Use: Not on file IMAGING: Procedures Orders Placed This Encounter Procedures Ambulatory referral to Physical Therapy [facility] ; please call patient to schedule, thank you Evaluate and treat ; increase strength / ROM, decrease pain L-Spine Standing Status: Future Standing Expiration Date: 11/22/2024 Referral Priority: Routine Referral Type: Consultation Referral Reason: Specialty Services Required Referral Location: [facility] Scheduling Requested Specialty: Physical Therapy Number of Visits Requested: 1 Ambulatory referral to Orthopaedic Surgery Dr. Holliday ; Please call patient to schedule, thank you. Evaluate and treat (L) hip ; hx of (L) SANDRA. Standing Status: Future Standing Expiration Date: 11/22/2024 Referral Priority: Routine Referral Type: Consultation Referral Reason: Specialty Services Required Referred to Provider: Tung Holliday MD Requested Specialty: Orthopaedic Surgery Number of Visits Requested: 1 ASSESSMENT: ICD-10-CM 1. Acute hip pain, left M25.552 Ambulatory referral to Orthopaedic Surgery 2. History of left hip replacement Z96.642 Ambulatory referral to Orthopaedic Surgery 3. Strain of lumbar region, initial encounter S39.012A Ambulatory referral to Physical Therapy PLAN: We have answered all the patients questions and explained the patients condition, decision making and plan including the risks and benefits associated with said plan in layman''s terms in a language the patient could understand easily. If patient''s symptoms significantly worsen and they cannot get a hold of us or their family physician, we have recommended that the patient proceed to the nearest emergency department (room). Dr. Rivera obtained history and examined the patient, I am acting as scribe for Dr. Rivera/[facility], PLAN: We have reviewed prior (L) hip xrays and discussed bone scan results with patient at bedside : Bone scan negative for loosening or increased uptake. After examination of her left hip today we have discussed both surgical and nonsurgical intervention, which patient is verbally refusing at thistime as she feels she is functioning too well at this time. We will provide her with Dr. Holliday'sphone number in the instance she would like to proceed with the thought of a (L) hip revision. Patient also notes increased pain to her lumbar spine, we are recommending a referral to PT ([facility]) with patient's verbal agreeance. We have discussed her HEP and restrictions and will see her back in 2 months to reassess her lumbar spine, if exam warrants we may recommend xrays at that time. Sharla Rivera D.O. [id number] History of Present illness Narrative* Jr. Sharla Rivera, DO - 05/04/2024 10:45 AM EDT Images from the original note were not included. NAME: Ary Shepherd : 1960 HISTORY OF PRESENT ILLNESS: NEW PT Ary Shepherd is an 63 y.o. @ female. NEW PT PRESENTS WITH (L) HIP DISCOMFORT - STATES HIP HASN'T BEEN RIGHT SINCE HAVING SANDRA IN 2016 PREVIOUS (L) SANDRA 2015 - DR CHOWDARY ([place], [place]) XRAYS, (L) HIP DONE TODAY 05/04/24 IN [facility] NO BONE SCAN NO MDP / PREDNISONE NO CURRENT PHYSICAL THERAPY NO PAIN MGMT HX SCOLIOSIS - LUMBAR PAIN IS LOCATED TO HER (L) LOWER BACK / BUTTOCK - DENIES ANY RADIATING PAIN, NO N/T ; SYMPTOMS HAVEBECOME CONSTANT - WORSE WITH STANDING. NOTES FULL ROM BUT STATES THE HIP SLIPS - SOME SQUEAKING. TAKING ALEVE PRN - SOME RELIEF ; DENIES ANY SWELLING. PREVIOUS (R) SANDRA 12/23/18 - DR RIVERA PAST MEDICAL HISTORY: No past medical history on file. PAST SURGICAL HISTORY: Past Surgical History: Procedure Laterality Date APPENDECTOMY 1979 TOTAL HIP ARTHROPLASTY Right 12/23/2018 DR RIVERA TOTAL HIP ARTHROPLASTY Left 2015 DR CHOWDARY SOCIAL HISTORY: Social History Occupational History Not on file Tobacco Use Smoking status: Former Types: Cigarettes Smokeless tobacco: Never Substance and Sexual Activity Alcohol use: Not on file Drug use: Not on file Sexual activity: Not on file ALLERGIES: Allergies Allergen Reactions Augmentin [Amoxicillin-Pot Clavulanate] Anaphylaxis Codeine GI intolerance and Dizziness HOME MEDICATIONS: Current Outpatient Medications Medication Instructions Naproxen Sodium (Aleve) 220 MG capsule Take by mouth REVIEW OF SYSTEMS: Review of Systems Vitals: Body mass index is 35.44 kg/m . Tobacco Use: Medium Risk (05/04/2024) Patient History Smoking Tobacco Use: Former Smokeless Tobacco Use: Never Passive Exposure: Not on file Alcohol Use: Not on file PHYSICAL EXAM: Hip Musculoskeletal Exam Gait Gait is normal. Inspection Leg length disparity: no discrepancy Left Erythema: none Ecchymosis: none Edema: none Deformity: none Previous incision: anterolateral Incision: well-healed Palpation Left Left hip palpation is normal. Increased warmth: none Tenderness: present Range of Motion Left Left hip range of motion is within functional limits. Active ROM: normal. Passive ROM: normal. Strength Left Left hip strength is normal. Extension: 5/5. Flexion: 5/5. Internal rotation: 5/5. External rotation: 5/5. Adduction: 5/5. Abduction: 5/5. Neurovascular Left Left hip neurovascular exam is normal. Pulses - PT: normal Posterior tibial: 2+ IMAGING: XR hip left 2 or 3 views Imaging Result: AP and lateral of left hip showed acceptable position and alignment of left total hip arthroplasty. There was no evidence of loosening of the acetabular cup or femoral stem. Femoral head was well centered in the acetabular liner without evidence of asymmetric or accelerated wear. There was no gross evidence of fracture and/or dislocation. Impression: Unremarkable left total hip arthroplasty. Procedures Orders Placed This Encounter Procedures XR hip left 2 or 3 views Order Specific Question: Reason for exam: Answer: PAIN NM bone 3 phase Standing Status: Future Standing Expiration Date: 05/04/2025 Scheduling Instructions: [facility] ; Please call patient to schedule, thank you. Order Specific Question: Reason for exam: Answer: r/o prosthetic loosening ; (L) SANDRA ASSESSMENT: ICD-10-CM 1. Acute hip pain, left M25.552 XR hip left 2 or 3 views NM bone 3 phase 2. History of left hip replacement Z96.642 NM bone 3 phase PLAN: We have answered all the patients questions and explained the patients condition, decision making and plan including the risks and benefits associated with said plan in layman''s terms in a language the patient could understand easily. If patient''s symptoms significantly worsen and they cannot get a hold of us or their family physician, we have recommended that the patient proceed to the nearest emergency department (room). Dr. Rivera obtained history and examined the patient, I am acting as scribe for Dr. Rivera/[facility], PLAN: We have discussed (L) hip xrays with patient at bedside. After examination of her left hip today we are recommending a bone scan to r/o premature prosthetic loosening secondary to squeaking / shifting noted to her left hip with ambulation since being replaced in 2016. We have discussed her HEP and restrictions and will see her back in 4 weeks to discuss bone scan results. Sharla Rivera D.O. documented [facility] encounter[facility]Evaluation [facility]* Diagnosis Acute hip pain, left- Primary History of left hip replacement [facility] Diagnosis Acute hip pain, left- Primary History of left hip replacement Strain of lumbar region, initial encounter [facility] Diagnosis Strain of lumbar region, initial encounter- Primary Pain of lumbar spine [facility]* Diagnosis Neoplasm of unspecified behavior of bone, soft tissue, and skin- Primary [facility]* Diagnosis Rash and other nonspecific skin eruption- Primary 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, including hip Lentigines documented [facility] this encounter [facility] Author Diane Barrera [facility] Note Date/Time August 09, 2024 8 :40am [facility] [address] [place] [address] Gastroenterology H&P Signed Patient: Ary Shepherd MR#: [id number] : 1960 Acct:[id number] Age/Sex: 63 / F Adm Date: 5 Loc: Room: Type: [facility] Attending Dr: Diane Barrera DO Copies to: Diane Barrera, DO Amanda Cleary CNP~ Date of Service: 08/09/2024 HISTORY & PHYSICAL: Patient's history with special attention to the cardiovascular, pulmonary systems and the current problem was reviewed with the patient immediately prior to the procedure. Present medications and doses reviewed in the EMR. Allergies and pertinent laboratory tests were also reviewedat this time in the EMR. The physical examination, as below, was then performed. Indication, assessment and HPI: 63-year-old female who presents for colonoscopy for family history of colon cancer in her father. Last colonoscopy 2019 Family history of GI malignancy? Colon cancer in her father as well as maternalaunt PHYSICAL EXAMINATION General appearance: cooperative, NAD Skin: No jaundice, no rash or lesions Head: NCAT Eyes: Anicteric Neck: Supple Lungs: Normal respiratory effort, no use of accessory muscles Abdomen: Soft, nondistended Neuro: No focal deficits, Ox3. REVIEW OF SYSTEMS Constitutional: Denies malaise, fevers Cardiovascular: Denies chest pain, palpitations Respiratory: Denies shortness of breath, wheezing Gastrointestinal: As per HPI Genitourinary: Denies dysuria, polyuria Musculoskeletal: Denies joint swelling, joint stiffness Neurological: Denies confusion, numbness, tingling Endocrine: Denies fatigue Written informed consent obtained from the patient. Risks (including but not limited to perforation, infection, bloating, bleeding, need for emergent surgeryand loss of life), benefits and alternatives explained and questions answered. The patient verbalized understanding. Based on history patient is an appropriate candidate for the procedure. Diane Barrera DO Present medication and doses reviewed in the EMR Documented By: Diane Barrera DO 08/09/24 0835 Signed By: <Electronically signed by Diane Barrera DO> 08/09/24 0840 [facility] Work Phone: Hospital Discharge instructions Additional Instructions DISCHARGE INSTRUCTIONS FOR COLONOSCOPY WHAT TO EXPECT: - You may feel full, gassy or cramping after your procedure. In some cases, this may be from a few hours to a day. Walking may help relieve the discomfort. - If you have polyp(s) removed you may note some minor bloody discharge after your first bowel movements. - You should begin to recover from anesthesia within 1 hour of the procedure, however may feel groggy for the next 24 hours. DO's AND DON'Ts: - Call your doctor right away if you have a hard abdomen, severe pain, are passing lots of bright red blood or clots. - Call your doctor if you develop any rashes, hives or difficulty breathing. - Let your doctor know if you have not had a bowel movement by 3 days after your procedure. - If you take 81 mg aspirin for your heart it is safe to resume this medication. - If you take other blood thinner medications your doctor will instruct you when these can safely be resumed. - Do NOT drive for 24 hours. - Do NOT operate machinery such as power tools, Bill.comn mowers, snow blowers, sewing machines, etc. for 24 hours. - Avoid alcoholic beverages and drugs for allergies, nerves, or sleep. - Do NOT stay alone. Do NOT leave your child unattended. - Do NOT make important personal or business decisions or sign any legal documents. - Eat solid foods and drink liquids in smaller amounts than usual until normal appetite returns. If you should experience an upset stomach, liquids high in sugar content (soda, Prakash-Aid, non-acid juices) are recommended. - You can resume normal activities tomorrow. FOLLOW UP & RECOMMENDATIONS: -Please call the office and make a follow up appointment to see me as needed. -Notify the doctor if you have any problems. -Repeat colonoscopy in 3 years with 2 day bowel preparation -Follow up with PCP. -Office number [phone]. 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 They grow in number after they enter your body. There are many types that cause different illnesses, such as colds and the mumps. The symptoms of a viral respiratory infection often start quickly. They include a fever, sore throat, and runny nose. You may also just not feel well. Or you may not want to eat much. Most viral respiratory infections are not serious. They usually get better with time and self-care. Antibiotics are not used to treat a viral infection. That's because antibiotics will not help cure a viral illness. In some cases, antiviral medicine can help your body fight a serious viral infection. Follow-up care is a garcia part of your treatment and safety. Be sure to make and go to all appointments, and call your doctor if you are having problems. It's also a good idea to know your test resultsand keep a list of the medicines you take. How can you care for yourself at home? Rest as much as possible until you feel better. Be safe with medicines. Take your medicine exactly as prescribed. Call your doctor if you think youare having a problem with your medicine. You will get more details on the specific medicine your doctor prescribes. Take an fdzq-mna-mhnzkdl pain medicine, such as acetaminophen (Tylenol), ibuprofen (Advil, Motrin),or naproxen (Aleve), as needed for pain and fever. Read and follow all instructions on the label. Do not give aspirin to anyone younger than 20. It has been linked to Binta syndrome, a serious illness. Drink plenty of fluids, enough so that your urine is light yellow or clear like water. Hot fluids, such as tea or soup, may help relieve congestion in your nose and throat. If you have kidney, heart,or liver disease and have to limit fluids, talk with your doctor before you increase the amount of fluids you drink. Try to clear mucus from your lungs by breathing deeply and coughing. Gargle with warm salt water once an hour. This can help reduce swelling and throat pain. Use 1 teaspoon of salt mixed in 1 cup of warm water. Do not smoke or allow others to smoke around you. If you need help quitting, talk to your doctor about stop-smoking programs and medicines. These can increase your chances of quitting for good. To avoid spreading the virus Cough or sneeze into a tissue. Then throw the tissue away. If you don't have a tissue, use your hand to cover your cough or sneeze. Then clean your hand. You can also cough into your sleeve. Wash your hands often. Use soap and warm water. Wash for 15 to 20 seconds each time. If you don't have soap and water near you, you can clean your hands with alcohol wipes or gel. When should you call for help? Call your doctor now or seek immediate medical care if: You have a new or higher fever. Your fever lasts more than 48 hours. You have trouble breathing. You have a fever with a stiff neck or a severe headache. You are sensitive to light. You feel very sleepy or confused. Watch closely for changes in your health, and be sure to contact your doctor if: You do not get better as expected. Where can you learn more? Log into your personal health record on https://OY LX Therapieshart.[employer] and enter Q795 in the Education box to learn more about Viral Respiratory Infection: Care Instructions. Current as of: March 17, 2018 Content Version: [id number] [employer]. Care instructions adapted under license by your healthcare professional. If you have questions about a medical condition or this instruction, always ask your healthcare professional. [employer] disclaims any warranty or liability for your use of this information. Sinusitis: Care Instructions Your Care Instructions Sinusitis is an infection of the lining of the sinus cavities in your head. Sinusitis often followsa cold. It causes pain and pressure in your head and face. In most cases, sinusitis gets better on its own in 1 to 2 weeks. But some mild symptoms may last for several weeks. Sometimes antibiotics are needed. Follow-up care is a garcia part of your treatment and safety. Be sure to make and go to all appointments, and call your doctor if you are having problems. It's also a good idea to know your test resultsand keep a list of the medicines you take. How can you care for yourself at home? Take an zpda-lyc-elxscyp pain medicine, such as acetaminophen (Tylenol), ibuprofen (Advil, Motrin),or naproxen (Aleve). Read and follow all instructions on the label. If the doctor prescribed antibiotics, take them as directed. Do not stop taking them just because you feel better. You need to take the full course of antibiotics. Be careful when taking ajfc-pit-bxzueeq cold or flu medicines and Tylenol at the same time. Many ofthese medicines have acetaminophen, which is Tylenol. Read the labels to make sure that you are nottaking more than the recommended dose. Too much acetaminophen (Tylenol) can be harmful. Breathe warm, moist air from a steamy shower, a hot bath, or a sink filled with hot water. Avoid cold, dry air. Using a humidifier in your home may help. Follow the directions for cleaning the machine. Use saline (saltwater) nasal washes to help keep your nasal passages open and wash out mucus and bacteria. You can buy saline nose drops at a grocery store or drugstore. Or you can make your own at home by adding 1 teaspoon of salt and 1 teaspoon of baking soda to 2 cups of distilled water. If you make your own, fill a bulb syringe with the solution, insert the tip into your nostril, and squeeze gently. Blow your nose. Put a hot, wet towel or a warm gel pack on your face 3 or 4 times a day for 5 to 10 minutes each time. Try a decongestant nasal spray like oxymetazoline (Afrin). Do not use it for more than 3 days in a row. Using it for more than 3 days can make your congestion worse. When should you call for help? Call your doctor now or seek immediate medical care if: You have new or worse swelling or redness in your face or around your eyes. You have a new or higher fever. Watch closely for changes in your health, and be sure to contact your doctor if: You have new or worse facial pain. The mucus from your nose becomes thicker (like pus) or has new blood in it. You are not getting better as expected. Where can you learn more? Log into your personal health record on https://Poly Adapt[employer]et.[facility] healthCovelusst. [facility] and enter I933 in the Education box to learn more about Sinusitis: Care Instructions. Current as of: May 02, 2018 Content Version: [id number] [employer]. Care instructions adapted under license by your healthcare professional. If you have questions about a medical condition or this instruction, always ask your healthcare professional. [employer] disclaims any warranty or liability for your use of this information. documented in this encounter History of Present Illness * Jean Carlos Lipscomb MD - 06/07/2019 11:47 AM EST PATIENT NAME: Ary [facility] [address] [place] [address] : 1960 DATE OF VISIT: 06/07/2019 #: [id number] PROVIDER: Jean Carlos Lipscomb MD Chief Complaint Patient presents with Nasal Congestion x1 week, coughing, chest tightness, nasal congestion, productive cough, ear pain, runny nose SUBJECTIVE 58 y.o. female presents Nasal Congestion (x1 week, coughing, chest tightness, nasal congestion, productive cough, ear pain, runny nose ) URI This is a new problem. The current episode started in the past 7 days (6d). The problem has been gradually worsening. There has been no fever. Associated symptoms include congestion, coughing, ear pain, headaches, rhinorrhea, sneezing, a sore throat and wheezing. Pertinent negatives include no abdominal pain, chest pain, diarrhea, dysuria, nausea, rash, sinus pain or vomiting. She has tried nothing for the symptoms. The treatment provided no relief. MEDICAL ISSUES Past Medical History: Diagnosis Date Arthritis right foot H/O gastric bypass Neck pain Obesity (BMI 35.0-39.9 without comorbidity) PONV (postoperative nausea and vomiting) Sleep apnea, obstructive +CPAP- compliant with use Wears glasses Patient Active Problem List Diagnosis Bilateral sciatica Hypervitaminosis B6 Lower extremity edema Gastric bypass status for obesity SOCIAL HISTORY Social History Socioeconomic History Marital status: Single Spouse name: Not on file Number of children: Not on file Years of education: Not on file Highest education level: Not on file Occupational History Not on file Social Needs Financial resource strain: Not on file Food insecurity Worry: Not on file Inability: Not on file Transportation needs Medical: Not on file Non-medical: Not on file Tobacco Use Smoking status: Former Smoker Packs/day: 0.50 Years: 20.00 Pack years: 10.00 Last attempt to quit: 07/13/1997 Years since quittin.9 Smokeless tobacco: Never Used Substance and Sexual Activity Alcohol use: Yes Alcohol/week: 14.0 standard drinks Types: 14 Glasses of wine per week Comment: avg 1-2 glasses wine daily Drug use: No Sexual activity: Not on file Lifestyle Physical activity Days per week: Not on file Minutes per session: Not on file Stress: Not on file Relationships Social connections Talks on phone: Not on file Gets together: Not on file Attends latter day service: Not on file Active member of club or organization: Not on file Attends meetings of clubs or organizations: Not on file Relationship status: Not on file Other Topics Concern Not on file Social History Narrative Not on file FAMILY HISTORY Family History Problem Relation Age of Onset Cancer Father Diabetes Father Hypertension Father Heart disease Maternal Grandmother Stroke Maternal Grandmother Deep vein thrombosis Paternal Grandfather Pulmonary embolism Neg Hx Clotting disorder Neg Hx Anesthesia problems Neg Hx Surgical complications Neg Hx REVIEW OF SYSTEMS Review of Systems Constitutional: Positive for diaphoresis. Negative for appetite change, chills, fatigue and fever. HENT: Positive for congestion, ear pain, postnasal drip, rhinorrhea, sinus pressure, sneezing and sore throat. Negative for sinus pain. Eyes: Negative for pain, discharge, redness and itching. Respiratory: Positive for cough, chest tightness, shortness of breath and wheezing. Cardiovascular: Negative for chest pain, palpitations and leg swelling. Gastrointestinal: Negative for abdominal pain, constipation, diarrhea, nausea and vomiting. Genitourinary: Negative for dysuria. Musculoskeletal: Negative for arthralgias and myalgias. Skin: Negative for rash. Allergic/Immunologic: Negative for environmental allergies. 1. Neurological: Positive for headaches. Negative for dizziness, light- headedness and numbness. MEDICATIONS PRIOR TO VISIT Current Outpatient Medications on File Prior to Visit Medication Sig Dispense Refill b complex vitamins capsule Take 1 capsule by mouth every morning . biotin 10,000 mcg cap Take by mouth daily. CA CARB & GLUC/MAG OX & GLUC (CALCIUM MAGNESIUM ORAL) Take by mouth 4 (four) times a day *Takes a calcium, magnesium, Vit D3 tab. cholecalciferol, vitamin D3, (VITAMIN D3) 2,000 unit cap Take by mouth 4 (four) times a day. cinnamon bark (CINNAMON) 500 mg capsule Take 500 mg by mouth 3 (three) times a day. multivitamin (multivitamin) per tablet Take 1 tablet by mouth daily. OMEGA-3S/DHA/EPA/FISH OIL (OMEGA 3 ORAL) Take 1,350 mg by mouth 5 (five) times a day . PHYTONADIONE (VITAMIN K ORAL) Take 50 mcg by mouth 2 (two) times a day . No current facility-administered medications on file prior to visit. ALLERGIES/INTOLERANCES Allergies Allergen Reactions Codeine GI Intolerance Augmentin [Amoxicillin-Pot Clavulanate] Hives and Rash OBJECTIVE BP 113/77 (BP Location: Left arm, Patient Position: Sitting) Pulse 75 Temp 98.6 F (37 C) (Oral) Resp 16 Ht 5' 10 Wt 106.1 kg (234 lb) SpO2 96% BMI 33.58 kg/m Physical Exam Vitals signs and nursing note reviewed. Constitutional: General: She is not in acute distress. Appearance: She is well-developed. She is not diaphoretic. HENT: Head: Normocephalic and atraumatic. Right Ear: Tympanic membrane, ear canal and external ear normal. Tympanic membrane is not injected,erythematous or bulging. Left Ear: Tympanic membrane, ear canal and external ear normal. Tympanic membrane is not injected, erythematous or bulging. Nose: Rhinorrhea present. Right Sinus: Maxillary sinus tenderness and frontal sinus tenderness present. Left Sinus: Maxillary sinus tenderness and frontal sinus tenderness present. Mouth/Throat: Pharynx: Posterior oropharyngeal erythema present. No oropharyngeal exudate. Tonsils: No tonsillar abscesses. Eyes: General: Right eye: No discharge. Left eye: No discharge. Conjunctiva/sclera: Conjunctivae normal. Neck: Musculoskeletal: Normal range of motion and neck supple. Cardiovascular: Rate and Rhythm: Normal rate and regular rhythm. Heart sounds: Normal heart sounds. No murmur. No friction rub. No gallop. Pulmonary: Effort: Pulmonary effort is normal. No respiratory distress. Breath sounds: Normal breath sounds. No wheezing or rales. Abdominal: General: Bowel sounds are normal. There is no distension. Palpations: Abdomen is soft. Tenderness: There is no abdominal tenderness. Musculoskeletal: Normal range of motion. Skin: General: Skin is warm and dry. Findings: No erythema or rash. Neurological: Mental Status: She is alert and oriented to person, place, and time. Psychiatric: Behavior: Behavior normal. Thought Content: Thought content normal. Judgment: Judgment normal. PROCEDURE Procedures Results No results found for this or any previous visit (from the past 168 hour(s)). No orders to display ASSESSMENT/PLAN (expressed as patient instructions): 1. Viral URI with cough predniSONE (DELTASONE) 20 MG tablet benzonatate (TESSALON) 200 MG capsule pseudoephedrine-guaiFENesin (Mucinex D Maximum Strength) 120-1,200 mg Tb12 2. Acute non-recurrent frontal sinusitis predniSONE (DELTASONE) 20 MG tablet benzonatate (TESSALON) 200 MG capsule pseudoephedrine-guaiFENesin (Mucinex D Maximum Strength) 120-1,200 mg Tb12 doxycycline hyclate (VIBRA-TABS) 100 MG tablet No follow-ups on file. ADDITIONAL CLINICAL COMMENTS Flu Shot: Patient UTD Discussed over the counter medications for symptomatic management and side effects of medications. Recommended taking all medications with food and to stop medications if they develop any signs of anallergic reaction. Educated patient and/or guardian about signs and symptoms that would warrant further immediate evaluation. Recommended that they should return to urgent care, make an appointment with their family physician, or go to the emergency room if symptoms persist or get acutely worse. Recommended follow upwithin the next week with their PCP or to get established with a PCP soon in order to follow up appropriately. ORDERS PLACED THIS VISIT No orders of the defined types were placed in this encounter. MEDICATION LIST AT END OF VISIT Current Outpatient Medications Medication Sig Dispense Refill b complex vitamins capsule Take 1 capsule by mouth every morning . biotin 10,000 mcg cap Take by mouth daily. CA CARB & GLUC/MAG OX & GLUC (CALCIUM MAGNESIUM ORAL) Take by mouth 4 (four) times a day *Takes a calcium, magnesium, Vit D3 tab. cholecalciferol, vitamin D3, (VITAMIN D3) 2,000 unit cap Take by mouth 4 (four) times a day. cinnamon bark (CINNAMON) 500 mg capsule Take 500 mg by mouth 3 (three) times a day. multivitamin (multivitamin) per tablet Take 1 tablet by mouth daily. OMEGA-3S/DHA/EPA/FISH OIL (OMEGA 3 ORAL) Take 1,350 mg by mouth 5 (five) times a day . PHYTONADIONE (VITAMIN K ORAL) Take 50 mcg by mouth 2 (two) times a day . benzonatate (TESSALON) 200 MG capsule Take 1 (one) capsule (200 mg total) by mouth 3 (three) times a day as needed for cough . 60 capsule 1 doxycycline hyclate (VIBRA-TABS) 100 MG tablet Take 1 (one) tablet (100 mg total) by mouth 2 (two) times a day for 10 days . 20 tablet 0 predniSONE (DELTASONE) 20 MG tablet 3 tabs QD x3d, then 2 tabs QD x3d, then 1 tabs QD x3d, then 0.5tabs QD x3d . 20 tablet 0 pseudoephedrine-guaiFENesin (Mucinex D Maximum Strength) 120-1,200 mg Tb12 Take 1 (one) tablet by mouth 2 (two) times a day as needed . 24 each 0 No current facility-administered medications for this visit. documented in this encounter Assessments Diagnosis Viral URI with cough Acute non-recurrent frontal sinusitis Chief Complaint and Reason for Visit Chief Complaint Admit Date M25.552 - Pain in left hip June 16, 2024 1:00pm CONSULT DR. RIVERA LT HIP PAIN, NX Dec 2023 1:41pm Z96.642 June 20, 2024 2 :59pm F/U AFTER LABS June 23, 2024 8:39am Screening August 09, 2024 7 :03am Screening August 09, 2024 8 :40am Reason for Visit Admit Date History of total left hip replacement De 2023 1:41pm Greater trochanteric bursitis of left hi p June 23, 2024 8:39am History of total left hip replacement 2023 8:39am Additional Source Comments INFORMATION SOURCE (unrecogn ized section and content) DATE CREATED AUTHOR 06/07/2019 [facility] DATE CREATED AUTHOR AUTHOR'S ORGANIZ ATION 12/28/2019 [facility] DATE CREATED AUTHOR AUTHOR'S ORGANIZ ATION 10/09/2020 [facility] DATE CREATED AUTHOR AUTHOR'S ORGANIZ ATION 08/12/2021 [facility] DATE CREATED AUTHOR AUTHOR'S ORGANIZ ATION 12/31/2023 [facility] DATE CREATED AUTHOR AUTHOR'S ORGANIZ ATION 08/20/2024 [facility] DATE CREATED AUTHOR AUTHOR'S ORGANIZ ATION 10/15/2024 [facility] EPIC Reason for Visit (unrecogniz ed section and content) Reason Comments Nasal Congestion x1 week, coughing, c hest tightness, nasal congestion, productive cough, ear pain, runny nose Reason Comments Pain Reason Comments Pain Reason Comments Pain Reason Comments Suspicious Skin Lesion Reason Comments Follow-up Care Teams (unrecognized sec tion and content) Channeler Insole Relationship Specialty Start Date End Date Tima Rodriguez MD [address] [place] [phone] PCP - General Family Medicine 05/04/24 Amanda Cleary MD [facility] [place] [address] Referring Physician Family Medicine 05/04/24 Channeler Insole Relationship Specialty Start Date End Date Tima Rodriguez MD [address] [place] [phone] PCP - General Family Medicine 05/04/24 Amanda Cleary MD [address] [place] [phone] Referring Physician Family Medicine 05/04/24 Channeler Insole Relationship Specialty Start Date End Date Tima Rodriguez MD [address] [place] [phone] PCP - General Family Medicine 05/04/24 Amanda Cleray MD [address] [place] [phone] Referring Physician Family Medicine 05/04/24 Channeler Insole Relationship Specialty Start Date End Date Tima Rodriguez MD [address] [place] [phone] PCP - General Family Medicine 05/04/24 Amanda Cleary MD [address] [place] [phone] Referring Physician Family Medicine 05/04/24 Channeler Insole Relationship Specialty Start [place] [address] [place] [phone] PCP - General Family Medicine 05/04/24 Amanda Cleary MD [address] [place] [address] [place] [address] Referring Physician Family Medicine 05/04/24 Regine Souza DO [address] [place] [address] Referring Physician Neurology 06/27/24 Channeler Insole Relationship Specialty Start Date End Date Tima Rodriguez MD [address] [place] [phone] PCP - General Family Medicine 05/04/24 Amanda Cleary MD [address] [place] [address] Referring Physician Family Medicine 05/04/24 Regine Souza DO [address] [place] [address] Referring Physician Neurology 06/27/24 Team Status: Active Member Role Status Dates CHIRAG Damon Primary Care Provider Active Team Status: Inactive Member Role Status Dates NON STAFF Primary Care Provider Active Start: June 16, 2024 End: June 16, 2024 Tung Holliday II, MD Attending Provider Active Start: June 16, 2024 End: June 16, 2024 Team Status: Inactive Member Role Status Dates CHIRAG Damon Primary Care Provider Active Start: June 20, 2024 End: June 20, 2024 Tung Holliday II, MD Attending Provider Active Start: June 20, 2024 End: June 20, 2024 Team Status: Inactive Member Role Status Dates Tung Holliday II, MD Attending Provider Active Start: June 23, 2024 End: June 23, 2024 CHIRAG Damon Primary Care Provider Active Start: June 23, 2024 End: June 23, 2024 Team Status: Inactive Member Role Status Dates Diane Barrera DO Attending Provider Active St art: August 09, 2024 End: August 09, 2024 MIGUE DamonTima Primary Care Provider Active Start: August 09, 2024 End: August 09, 2024 Team Status: Active Member Role Status Dates Diane Barrera DO Attending Provider, Other Provider Active Start: August 09, 2024 Amanda Cleary NP-Tima Primary Care Provider Active Start: August 09, 2024 Channeler Insole Relationship Specialty Start Date End Date Tima Rodriguez MD [address] [place] [id number] PCP - General Family Medicine 05/04/24 Amanda Cleary MD [address] [place] [id number] Referring Physician Family Medicine 05/04/24 Regine Souza DO [id number] [place] [address] Referring Physician Neurology 06/27/24 Channeler Insole Relationship Specialty [place] [address] [place] [id number] PCP - General Family Medicine 05/04/24 Amanda Cleary MD [address] [place] [id number] Referring Physician Family Medicine 05/04/24 Regine Souza DO [address] [place] [address] Referring Physician Neurology 06/27/24 FOR RECORDS PERTAINING TO PATIENTS WHO ARE OR HAVE BEEN ENROLLED IN A CHEMICAL DEPENDENCY/SUBSTANCEABUSE PROGRAM, SOME INFORMATION MAY BE OMITTED. This clinical summary was aggregated from multiple sources. Caution should be exercised in using it in the provision of clinical care. This summary normalizes information from multiple sources, and as a consequence, information in this document may materially change the coding, format and clinical context of patient data. In addition, data may be omitted in some cases. CLINICAL DECISIONS SHOULD BE BASED ON THE PRIMARY CLINICAL RECORDS. [facility] [employer] [facility] provides no warranty or guarantee of the accuracy or completeness of information in this document.
[2024-11-24 09:53] LABS: Basophils Percent Auto 0.5 % (0.2-2.0); Eosinophils Absolute Auto 0.1 10^3/uL (0.0-0.7); Eosinophils Percent Auto 2.6 % (0.9-7.0); Hematocrit 39.1 % (36.0-48.0); Hemoglobin 13.1 g/dL (12.0-16.0); Immature Granulocytes Abs Auto 0.01 10^3/uL (0.00-0.03); Immature Granulocytes Pct Auto 0.2 % (0.0-0.5); Lymphocytes Percent Auto 23.1 % (20.5-60.0); Mean Corpuscular HGB Conc 33.5 g/dL (29.9-35.2); Mean Corpuscular Hemoglobin 32.7 pg (26.7-34.0); Mean Corpuscular Volume 97.5 fL (81.0-99.0); Monocytes Absolute Auto 0.5 10^3/uL (0.3-0.8); Monocytes Percent Auto 10.7 % (1.7-12.0); Neutrophils Absolute Auto 2.6 10^3/uL (1.4-6.5); Neutrophils Percent Auto 62.9 % (43.0-75.0); Platelet Count 224 10^3/uL (150-450); Red Blood Count 4.01 10^6/uL (4.20-5.40); Red Cell Distribution Width 12.3 % (11.0-15.0); White Blood Count 4.2 10^3/uL (4.0-11.0)
[2024-11-24 11:31] LABS: Estimated Average Glucose 111 mg/dL; Glycohemoglobin A1C 5.5 % (4.5-6.2)
[2024-11-24 11:35] LABS: Alanine Aminotransferase 39 U/L (14-59); Albumin Globulin Ratio 1.3; Albumin Level 3.8 g/dL (3.4-5.0); Alkaline Phosphatase 54 U/L (46-116); Aspartate Amino Transferase 26 U/L (15-37); BUN Creatinine Ratio 18.5; Bilirubin Total 1.1 mg/dL (0.2-1.0); Carbon Dioxide 29.2 mmol/L (21.0-32.0); Chloride 107 mmol/L (98-107); Chol HDL Ratio 1.5; Cholesterol 135 mg/dL (<=200); Estimated GFR (African America >60 (>=60 mL/min/1.73m^2); Estimated GFR (Non-African Ame >60 (>=60 mL/min/1.73m^2); Free T3 4.05 pg/mL (2.18-3.98); Globulin 2.9 g/dL; Glucose 94 mg/dL (74-106); HDL Cholesterol 89 mg/dL (40-60); Potassium 4.2 mmol/L (3.5-5.1); Sodium 143 mmol/L (136-145); Thyroid Stimulating Hormone 1.714 uIU/mL (0.358-3.740); Total Protein 6.7 g/dL (6.4-8.2); Triglycerides 30 mg/dL (<=150)
[2024-11-25 06:07] LABS: Insulin 12.5 uIU/mL (2.6-24.9)
== END 2024-11-24 09:03 | disposition home or self-care (01) ==
LOC: LAB 09:07
PROVIDERS: PCP Nurse Practitioner Family; Visit Provider Nurse Practitioner Family
DX: R53.83 Other fatigue (principal); E55.9 Vitamin D deficiency, unspecified; E78.9 Disorder of lipoprotein metabolism, unspecified; D64.9 Anemia, unspecified; R73.09 Other abnormal glucose; I10 Essential (primary) hypertension
CPT/HCPCS: 36415; 80053; 80061; 82306; 83036; 83525; 83540; 84436; 84443; 84481; 85025